=== PATIENT | female | born 1970 | race Caucasian/White ===

== ENCOUNTER 2018-05-21 18:56 | Emergency (ER) | payer BC, OTHER, SELFPAY ==
[2018-05-21] MEDS ORDERED: HYDROCODONE/APAP 5/325 MG TAB ONE (20:18)
[2018-05-21] MEDS ORDERED: DIAZEPAM 2 MG TABLET ONE (20:18)
[2018-05-21 20:20] LABS: Urine Blood 1+ (NEG); Urine Glucose NEGATIVE (NEG); Urine Protein NEGATIVE (NEG); Urine Specific Gravity >1.030 (1.005-1.030); Urine pH 5.5 (5.0-7.0)
--- NOTE | 2018-05-21 20:24 | EDPHYS ---
Physician Documentation [facility] Name: Yvette Kidd Age: 47 yrs Sex: Female : 1970 Arrival Date: 05/21/2018 Time: 19:04 Bed 14 Private MD: ED Physician Rico Barba HPI: 05/21 20:26 This 47 yrs old Female presents to ER via Ambulatory with complaints of Back snw Pain. 20:26 The patient presents with pain that is acute, with no known mechanism of injury. The snw symptoms are located in the low back. Onset: The symptoms/episode began/occurred suddenly, 3 day(s) ago. Location: lumbar area. Associated signs and symptoms: Pertinent positives: nausea, diarrhea. Modifying factors: The patient symptoms are alleviated by ambulation, the patient symptoms are aggravated by bending, lifting, sitting. Severity of symptoms: At their worst the symptoms were moderate, severe. The patient has not experienced similar symptoms in the past. It is unknown whether or not the patient has recently seen a physician. Historical: - Allergies: 19:34 Erythromycin; tl2 - Home Meds: 19:34 Vyvanse oral oral [Active]; tl2 - PMHx: 19:34 ADD/ADHD; mitral valve prolapse; tl2 - PSHx: 19:34 ; Cholecystectomy; tl2 - Immunization history:: Adult Immunizations up to date. - Social history:: Smoking status: Patient/guardian denies using tobacco. - Ebola Screening: : No symptoms or risks identified at this time. ROS: 20:25 Constitutional: Negative for fever, chills, and weight loss, Eyes: Negative for injury, snw pain, redness, and discharge, ENT: Negative for injury, pain, and discharge, Neck: Negative for injury, pain, and swelling, Cardiovascular: Negative for chest pain, palpitations, and edema, Respiratory: Negative for shortness of breath, cough, wheezing, and pleuritic chest pain, Abdomen/GI: Negative for abdominal pain, nausea, vomiting, diarrhea, and constipation, : Negative for injury, bleeding, discharge, and swelling, MS/Extremity: Negative for injury and deformity, Skin: Negative for injury, rash, and discoloration, Neuro: Negative for headache, weakness, numbness, tingling, and seizure. 20:25 Back: Positive for decreased range of motion, pain at rest, pain with movement, radiated pain, of the lumbar area and left low back. Exam: 20:24 Constitutional: This is a well developed, well nourished patient who is awake, alert, snw and in no acute distress. Head/Face: Normocephalic, atraumatic. Eyes: Pupils equal round and reactive to light, extra-ocular motions intact. Lids and lashes normal. Conjunctiva and sclera are non-icteric and not injected. Cornea within normal limits. Periorbital areas with no swelling, redness, or edema. ENT: Nares patent. No nasal discharge, no septal abnormalities noted. Tympanic membranes are normal and external auditory canals are clear. Oropharynx with no redness, swelling, or masses, exudates, or evidence of obstruction, uvula midline. Mucous membranes moist. Neck: Trachea midline, no thyromegaly or masses palpated, and no cervical lymphadenopathy. Supple, full range of motion without nuchal rigidity, or vertebral point tenderness. No Meningismus. Chest/axilla: Normal chest wall appearance and motion. Nontender with no deformity. No lesions are appreciated. Cardiovascular: Regular rate and rhythm with a normal S1 and S2. No gallops, murmurs, or rubs. Normal PMI, no JVD. No pulse deficits. Respiratory: Lungs have equal breath sounds bilaterally, clear to auscultation and percussion. No rales, rhonchi or wheezes noted. No increased work of breathing, no retractions or nasal flaring. Abdomen/GI: Soft, non-tender, with normal bowel sounds. No distension or tympany. No guarding or rebound. No evidence of tenderness throughout. Skin: Warm, dry with normal turgor. Normal color with no rashes, no lesions, and no evidence of cellulitis. MS/ Extremity: Pulses equal, no cyanosis. Neurovascular intact. Full, normal range of motion. Neuro: Awake and alert, GCS 15, oriented to person, place, time, and situation. Cranial nerves II-XII grossly intact. Motor strength 5/5 in all extremities. Sensory grossly intact. Cerebellar exam normal. Normal gait. Psych: Awake, alert, with orientation to person, place and time. Behavior, mood, and affect are within normal limits. 20:24 Back: pain, that is moderate, ROM is painful, with flexion, CVA tenderness, is absent, vertebral tenderness, is not appreciated, muscle spasm, is appreciated in the left low back. Vital Signs: 19:34 BP 131 / 93; Pulse 81; Resp 20; Temp 97.8; Pulse Ox 100% on R/A; Weight 77.11 kg; tl2 Height 5 ft. 5 in. (165.10 cm); Pain 10/10; 21:05 BP 111 / 71; Pulse 74; Resp 18; Pulse Ox 100% on R/A; Pain 5/10; tl2 19:34 Body Mass Index 28.29 (77.11 kg, 165.10 cm) tl2 MDM: 19:27 Patient medically screened. snw 20:25 Data reviewed: vital signs, nurses notes. Data interpreted: Pulse oximetry: on room air snw is 100 %. Interpretation: normal. Counseling: I had a detailed discussion with the patient and/or guardian regarding: the historical points, exam findings, and any diagnostic results supporting the discharge/admit diagnosis, the presence of at least one elevated blood pressure reading (>120/80) during this emergency department visit, lab results, the need for outpatient follow up, to return to the emergency department if symptoms worsen or persist or if there are any questions or concerns that arise at home. Special discussion: I have referred the patient to see his PCP for further evaluation of high blood pressure. Based on the history and exam findings, there is no indication for further emergent testing or inpatient evaluation. I discussed with the patient/guardian the need to see the primary care provider for further evaluation of the symptoms. 05/21 19:50 Order name: Urine Dipstick--Ancillary (enter results); Complete Time: 20:22 mt 05/21 19:50 Order name: Urine --Ancillary (enter results); Complete Time: 20:22 mt 05/21 19:28 Order name: Urine Dipstick-Ancillary (obtain specimen); Complete Time: 19:50 snw Administered Medications: 20:15 Drug: Valium 2 mg Route: PO; tl2 21:07 Follow up: Response: No adverse reaction; Pain is decreased tl2 20:16 Drug: [place] 5 mg-325 mg 1 tabs Route: PO; tl2 21:07 Follow up: Response: No adverse reaction; Pain is decreased tl2 Disposition: 05/22 01:01 Co-signature as Attending Physician, Rico Barba MD. rn Disposition: 05/21/18 20:23 Discharged to Home. Impression: Radiculopathy, lumbar region, Low back pain. - Condition is Stable. - Discharge Instructions: Back Pain, Adult, Hypertension, Lumbosacral Radiculopathy, Musculoskeletal Pain, Back Injury Prevention, [id number], Back Exercises, Jmbz-[id number], Cryotherapy, Rehydration, Adult, Heat Therapy. - Prescriptions for Zofran 4 mg Oral Tablet - take 1 tablet by ORAL route every 12 hours As needed; 20 tablet. Diclofenac Sodium 75 mg Oral Tablet Sustained Release - take 1 tablet by ORAL route 2 times per day; 30 tablet. orphenadrine citrate 100 mg Oral Tablet Sustained Release - take 1 tablet by ORAL route 2 times per day As needed; 20 tablet. - Work release form, Medication Reconciliation Form, Thank You Letter, Antibiotic Education, Prescription Opioid Use form. - Follow up: Private Physician; When: 2 - 3 days; Reason: Recheck today's complaints, Continuance of care, Re-evaluation by your physician. Follow up: Emergency Department; When: As needed; Reason: Worsening of condition. Signatures: Dispatcher [employer] EDMS Lucia Rasheed, PERLITE GRINDER-C PERLITE GRINDER-Csnw Rico Barba MD MD rn Knox, Taylor, RN RN tl2 Corrections: (The following items were deleted from the chart) 05/21 21:10 20:23 05/21/2018 20:23 Discharged to Home. Impression: Radiculopathy, lumbar region; tl2 Low back pain. Condition is Stable. Forms are Medication Reconciliation Form, Thank You Letter, Antibiotic Education, Prescription Opioid Use. Follow up: Private Physician; When: 2 - 3 days; Reason: Recheck today's complaints, Continuance of care, Re-evaluation by your physician. Follow up: Emergency Department; When: As needed; Reason: Worsening of condition. snw
--- NOTE | 2018-05-21 20:24 | ER ---
Nurse's Notes [facility] Name: Yvette Kidd Age: 47 yrs Sex: Female : 1970 Arrival Date: 05/21/2018 Time: 19:04 Bed 14 Private MD: Diagnosis: Radiculopathy, lumbar region;Low back pain Presentation: 05/21 19:31 Presenting complaint: Patient states: L lower back pain since Sunday, gotten worse on tl2 Sunday and has continued since then. Pain is worse when sitting or trying to move from sitting to standing. Pain eases if walking. Denies urinary symptoms. Reports nausea. Transition of care: patient was not received from another setting of care. Onset of symptoms was May 15, 2018. Risk Assessment: Do you want to hurt yourself or someone else? Patient reports no desire to harm self or others. Initial Sepsis Screen: Does the patient meet any 2 criteria? No. Patient's initial sepsis screen is negative. Does the patient have a suspected source of infection? No. Patient's initial sepsis screen is negative. Care prior to arrival: None. 19:31 Method Of Arrival: Ambulatory tl2 19:31 Acuity: SANGITA 3 tl2 Triage Assessment: 19:34 General: Appears in no apparent distress. uncomfortable, Behavior is calm, cooperative, tl2 appropriate for age. Pain: Complains of pain in left low back Pain does not radiate. Pain currently is 10 out of 10 on a pain scale. Quality of pain is described as aching, sharp, Aggravated by repositioning. Neuro: Level of Consciousness is awake, alert, obeys commands, Oriented to person, place, time, situation. Cardiovascular: Denies chest pain. Respiratory: Airway is patent Respiratory effort is even, unlabored, Respiratory pattern is regular, symmetrical. GI: Reports nausea. : No signs and/or symptoms were reported regarding the genitourinary system. Derm: Skin is pink, warm \T\ dry. Musculoskeletal: Range of motion: limited in back. Historical: - Allergies: 19:34 Erythromycin; tl2 - Home Meds: 19:34 Vyvanse oral oral [Active]; tl2 - PMHx: 19:34 ADD/ADHD; mitral valve prolapse; tl2 - PSHx: 19:34 ; Cholecystectomy; tl2 - Immunization history:: Adult Immunizations up to date. - Social history:: Smoking status: Patient/guardian denies using tobacco. - Ebola Screening: : No symptoms or risks identified at this time. Screenin:37 Abuse screen: Denies threats or abuse. Nutritional screening: No deficits noted. tl2 Tuberculosis screening: No symptoms or risk factors identified. Fall Risk None identified. Assessment: 19:31 General: Appears. tl2 21:05 Reassessment: Patient appears in no apparent distress at this time. Patient and/or tl2 family updated on plan of care and expected duration. Pain level reassessed. Patient is alert, oriented x 3, equal unlabored respirations, skin warm/dry/pink. Pt verbalized understanding of discharge instructions, need for follow up and prescription usage Patient states feeling better. Vital Signs: 19:34 BP 131 / 93; Pulse 81; Resp 20; Temp 97.8; Pulse Ox 100% on R/A; Weight 77.11 kg; tl2 Height 5 ft. 5 in. (165.10 cm); Pain 10/10; 21:05 BP 111 / 71; Pulse 74; Resp 18; Pulse Ox 100% on R/A; Pain 5/10; tl2 19:34 Body Mass Index 28.29 (77.11 kg, 165.10 cm) tl2 ED Course: 19:04 Patient arrived in ED. as 19:26 Lucia Rasheed FNP-C [facility]. snw 19:27 Rico Barba MD is Attending Physician. snw 19:31 Domi Ann RN is Primary Nurse. tl2 19:33 Triage completed. tl2 19:34 Arm band placed on right wrist. tl2 19:37 Patient has correct armband on for positive identification. Placed in gown. Bed in low tl2 position. Call light in reach. Side rails up X 1. Adult w/ patient. 21:05 No provider procedures requiring assistance completed. Patient did not have IV access tl2 during this emergency room visit. Administered Medications: 20:15 Drug: Valium 2 mg Route: PO; tl2 21:07 Follow up: Response: No adverse reaction; Pain is decreased tl2 20:16 Drug: [place] 5 mg-325 mg 1 tabs Route: PO; tl2 21:07 Follow up: Response: No adverse reaction; Pain is decreased tl2 Outcome: 20:23 Discharge ordered by MD. mantilla 21:05 Discharged to home ambulatory, with family. tl2 21:05 Condition: stable 21:05 Discharge instructions given to patient, Instructed on discharge instructions, follow up and referral plans. medication usage, Demonstrated understanding of instructions, follow-up care, medications, Prescriptions given X 3. 21:10 Patient left the ED. tl2 Signatures: Lucia Rasheed, HOSPICE TEAM LEAD-C HOSPICE TEAM LEAD-Kena Coley Taylor, RN RN tl2
[2018-05-21 21:15] VITALS: TEMP 97.8; O2SAT 100
[2018-05-21 21:16] VITALS: BP 111/71
== END 2018-05-21 21:10 | disposition home or self-care (01) ==
LOC: ER 18:56
DX: M54.16 Radiculopathy, lumbar region (principal); F90.9 Attention-deficit hyperactivity disorder, unspecified type; Z88.3 Allergy status to other anti-infective agents
CPT/HCPCS: 81003; 81025; 99283

== ENCOUNTER → 2023-09-06 | Emergency (ER) | payer OTHER ==
[~2023-09-06] MED LIST: BENZONATATE 100 MG CAP PO ONE; FAMOTIDINE 20 MG/2 ML VIAL IV ONE; HYDROCODONE/APAP 10/325 TAB ONE; MORPHINE 4 MG/ML SYR ONE; NA CHLORIDE 0.9% 1,000 ML ONE; ONDANSETRON 4 MG/2 ML VIAL ONE; PROMETHAZINE INJ 25 MG/ML AMP ONE
[2023-09-06 18:41] LABS: Specific Gravity 1.022 (1.005-1.030); Urine Bacteria None Seen /HPF (<20); Urine Bilirubin NEGATIVE (Negative); Urine Blood Negative (Negative); Urine Clarity Turbid (Clear); Urine Color Yellow (Yellow); Urine Glucose NEGATIVE (Negative); Urine Mucus Slight /HPF (None Seen); Urine Protein NEGATIVE (Negative); Urine RBC None Seen /HPF (None Seen); Urine Urobilinogen Normal (Normal); Urine pH 5.5 (5.0-7.0)
[2023-09-06 18:55] LABS: Absolute Lymphocytes (CBC) 2.9 K/uL (0.7-4.9); Hematocrit 37.9 % (36.0-45.0); Lymphocytes % 36.4 % (15.3-44.8); MCV 89.1 fL (80-100); MPV 8.1 fL (7.6-11.3); Platelets 301 thou/uL (152-406); RBC Red Blood Cell Count 4.25 M/uL (3.86-4.86)
[2023-09-06 19:24] LABS: Albumin 3.3 g/dL (3.4-5.0); Bilirubin Total 0.7 mg/dL (0.2-1.0); Potassium 3.5 mEq/L (3.5-5.1); Protein, Total 7.3 g/dL (6.4-8.2)
--- NOTE | 2023-09-06 20:56 | RAD REPORT ---
EXAM DESCRIPTION: CT - Abdomen Pelvis W Contrast - 09/06/2023 8:14 pm CLINICAL HISTORY: Abdominal pain COMPARISON: Abdominal ultrasound September 05, 2019 TECHNIQUE: Computed axial tomography of the abdomen pelvis was obtained. 100 cc Isovue-300 was admin istered intravenously. Oral contrast was not requested which limits evaluation of bowel and appendix All CT scans are performed using dose optimization technique as appropriate and may include automated exposure control or mA/KV adjustment according to patient size. FINDINGS: The liver, spleen,, adrenal and kidneys appear unremarkable. The pancreas is minimally inhomogeneous which probably is a normal finding for the patient. A mass is not visualized. Pancreatic duct is normal caliber. No stranding within the adjacent fat. The promine nce of the pancreatic body described on the prior ultrasound is not considered significant There is no evidence of diverticulitis. Hysterectomy. No adnexal mass. Cholecystectomy A small umbilical hernia IMPRESSION: No acute abnormality is displayed.
--- NOTE | 2023-09-06 20:57 | RAD REPORT ---
EXAM DESCRIPTION: Golden Bustamante And Leta (2 Views)09/06/2023 6:21 pm CLINICAL HISTORY: Chest pain COMPARISON: September 05, 2023 FINDINGS: The lungs appear clear of acute infiltrate. The heart is normal size IMPRESSION: No acute abnormalities displayed
--- NOTE | 2023-09-06 21:10 | EDPHYS ---
Physician Documentation [facility] Name: Yvette Kidd Age: 53 yrs Sex: Female : 1970 Arrival Date: 09/06/2023 Time: 17:21 Bed 18 Private MD: ED Physician Geraldo Miller HPI: 09/06 17:53 This 53 yrs old Female presents to ER via Ambulatory with complaints of ABD/Side Pain. rn 17:53 The patient presents with abdominal pain in the right upper quadrant. rn 17:53 Onset: The symptoms/episode began/occurred 2 week(s) ago. The symptoms radiate to right rn back. Associated signs and symptoms: Pertinent negatives: blood in stools, fever, shortness of breath, vomiting, vomiting blood. 17:56 The symptoms are described as achy, sharp. Modifying factors: The symptoms are rn alleviated by nothing. 17:56 Severity of pain: At its worst the pain was moderate in the emergency department the rn pain is unchanged. The patient has not experienced similar symptoms in the past. The patient has been recently seen by a physician:. Patient states had flu a month ago and was diagnosed with pleurisy. Had been having right sided chest pain and abdominal pain that was worse with breathing since she had flu. Seen by Dr. Fuentes and blood work obtained as well as chest x-ray and ultrasound. Per patient report ultrasound showed possibly enlarged pancreas. Patient has had cholecystectomy in the past. No fever. No hemoptysis. No history of DVT or PE. No leg swelling. Reports more right chest pain than abdominal pain. No history of pancreatitis. Had her gallbladder removed 10 years ago. Denies alcoholism.. Historical: - Allergies: 17:51 Erythromycin; cm10 - PMHx: 17:51 ADD/ADHD; mitral valve prolapse; Rheumatoid arthritis; cm10 - PSHx: 17:51 Cholecystectomy; Total abdominal hysterectomy; cm10 - Immunization history:: Adult Immunizations up to date. - Social history:: Smoking status: Patient denies any tobacco usage or history of. - Family history:: not pertinent. - Hospitalizations: : No recent hospitalization is reported. ROS: 17:56 Constitutional: Negative for fever, chills, and weight loss, Cardiovascular: Negative rn for palpitations, and edema, Respiratory: Negative for shortness of breath, cough, wheezing Abdomen/GI: Negative for nausea, vomiting, diarrhea, and constipation, MS/Extremity: Negative for injury and deformity, Skin: Negative for injury, rash, and discoloration, Neuro: Negative for headache, numbness, tingling, and seizure, Exam: 17:56 Constitutional: Ambulatory to room without difficulty or assistance. rn 18:36 Constitutional: This is a well developed, well nourished patient who is awake, alert, rn and in no acute distress. Cardiovascular: Regular rate and rhythm. No pulse deficits. Respiratory: No increased work of breathing, no retractions or nasal flaring. Abdomen/GI: Soft, non-tender MS/ Extremity: Pulses equal, no cyanosis. Neuro: Awake and alert, GCS 15 Vital Signs: 17:49 BP 157 / 63; Pulse 97; Resp 18; Temp 97.5; Pulse Ox 99% on R/A; Weight 86.18 kg; Height cm10 5 ft. 4 in. ; Pain 9/10; 19:00 BP 138 / 68; Pulse 80; Resp 18; Temp 97.7(O); Pain 0/10; la4 21:36 BP 108 / 95; Pulse 83; Resp 20; Temp 97.6; Pulse Ox 100% on R/A; Pain 6/10; la4 17:49 Body Mass Index 32.61 (86.18 kg, 162.56 cm) cm10 17:49 Pain Scale: Adult cm10 19:00 Pain Scale: Adult la4 21:36 Pain Scale: Adult la4 [place] Coma Score: 21:36 Eye Response: spontaneous(4). Motor Response: obeys commands(6). Verbal Response: la4 oriented(5). Total: 15. MDM: 17:26 Patient medically screened. rn 20:31 Data reviewed: vital signs, nurses notes, lab test result(s), radiologic studies. ED kdr course: Patient report currently pending on CT of the abdomen. Plan would be to discharge patient if no significant findings were found. Otherwise the patient would be hospitalized to the hospitalist. Patient's PCP, Dr. Fuentes, is out of town. 09/06 17:47 Order name: CBC with Diff; Complete Time: 19:14 rn 09/06 17:47 Order name: CMP; Complete Time: 19:32 rn 09/06 17:47 Order name: Lipase; Complete Time: 19:32 rn 09/06 17:47 Order name: Urinalysis w/ reflexes; Complete Time: 18:59 rn 09/06 17:54 Order name: Troponin High Sensitivity; Complete Time: 19:32 rn 09/06 17:47 Order name: CT Abd/Pelvis - IV Contrast Only; Complete Time: 21:00 rn 09/06 17:56 Order name: XRAY Chest Pa And Lat (2 Views); Complete Time: 21:00 rn 09/06 17:54 Order name: EKG; Complete Time: 17:54 rn 09/06 17:47 Order name: IV Saline Lock; Complete Time: 18:40 rn 09/06 17:47 Order name: Labs collected and sent; Complete Time: 18:40 rn 09/06 17:54 Order name: EKG - Nurse/Tech; Complete Time: 18:40 rn Administered Medications: 18:10 Drug: NS 0.9% IV 1000 ml IV at 1 bolus Per protocol; 1000 mL bolus Route: IV; Rate: 1 rs5 bolus; Site: left antecubital; 18:10 Drug: Famotidine IVP 20 mg IVP once; dilute with 10 mL 0.9% NaCl; give over 2 minutes rs5 Route: IVP; Site: left antecubital; 18:30 Follow up: Response: No adverse reaction rs5 18:10 Drug: Ondansetron IVP 4 mg IVP once; over 2 minutes Route: IVP; Site: left antecubital; rs5 18:30 Follow up: Response: No adverse reaction; Nausea is decreased rs5 18:10 Drug: morphine IVP or IV 4 mg IVP once over 4 mins Route: IVP; Infused Over: 4 mins; rs5 Site: left antecubital; 18:30 Follow up: Response: No adverse reaction; Pain is decreased rs5 19:39 Drug: Promethazine IVP 12.5 mg IVP once Route: IVP; Site: left antecubital; la4 21:36 Follow up: Response: No adverse reaction; Nausea is decreased la4 21:36 Drug: [place] PO 10 mg-325 mg 1 tabs PO once Route: PO; la4 21:36 Drug: Tessalon Perle PO 200 mg PO once Route: PO; la4 Disposition Summary: 09/06/23 21:09 Discharge Ordered Notes: Location: Home kdr Problem: an ongoing problem kdr Symptoms: have improved kdr Condition: Stable kdr Diagnosis - Right lateral anterior inferior costal margin pain secondary to coughing kdr Followup: kdr - With: Private Physician - When: 2 - 3 days - Reason: If symptoms return, Further diagnostic work-up, Recheck today's complaints, Continuance of care, Re-evaluation by your physician Discharge Instructions: - Discharge Summary Sheet kdr - Musculoskeletal Pain kdr - Nonspecific Chest Pain, Adult, [id number] kdr - Cough, Adult, [id number] kdr Forms: - Medication Reconciliation Form kdr - Thank You Letter kdr - Prescription Opioid Use kdr - Patient Portal Instructions kdr - Leadership Thank You Letter kdr Prescriptions: - acetaminophen-codeine 300-30 mg Oral tablet - take 1 tablet ORAL route 2 times per day As needed Take in the evening for pain kdr relief with sleep; 12 tablet; Refills: 0, Product Selection Permitted - Tessalon Perles 100 mg Oral Capsule - take 1 capsule ORAL route every 8 hours As needed; 15 capsule; Refills: 0, kdr Product Selection Permitted Signatures: Dispatcher [employer] Geraldo Jama MD MD kdr Rico Barba MD MD rn Sotelo, Ricky, RN RN rs5 Laura Valle, RN RN cm10 Venita Dill, RN RN la4
--- NOTE | 2023-09-06 21:10 | ER ---
Nurse's Notes [facility] Name: Yvette Kidd Age: 53 yrs Sex: Female : 1970 Arrival Date: 09/06/2023 Time: 17:21 Bed 18 Private MD: Diagnosis: Right lateral anterior inferior costal margin pain secondary to coughing Presentation: 09/06 17:49 Chief complaint: Patient states: RUQ abdominal pain that radiates to back. Pt states cm10 that she was diagnosed with pneumonia last month. Pt states having a chest x-ray and US yesterday and was told "my pancreas is enlarged." Pt reports that the pain is worse with cough. Coronavirus screen: Vaccine status: Patient reports being unvaccinated. Ebola Screen: Patient denies travel to an Ebola-affected area in the 21 days before illness onset. No symptoms or risks identified at this time. Initial Sepsis Screen: Does the patient meet any 2 criteria? No. Patient's initial sepsis screen is negative. Does the patient have a suspected source of infection? No. Patient's initial sepsis screen is negative. Risk Assessment: Do you want to hurt yourself or someone else? Patient reports no desire to harm self or others. Onset of symptoms was September 06, 2023. 17:49 Method Of Arrival: Ambulatory cm10 17:49 Acuity: SANGITA 3 cm10 Historical: - Allergies: 17:51 Erythromycin; cm10 - PMHx: 17:51 ADD/ADHD; mitral valve prolapse; Rheumatoid arthritis; cm10 - PSHx: 17:51 Cholecystectomy; Total abdominal hysterectomy; cm10 - Immunization history:: Adult Immunizations up to date. - Social history:: Smoking status: Patient denies any tobacco usage or history of. - Family history:: not pertinent. - Hospitalizations: : No recent hospitalization is reported. Screenin:40 [facility] ED Fall Risk Assessment (Adult) History of falling in the last 3 months, rs5 including since admission No falls in past 3 months (0 pts) Confusion or Disorientation No (0 pts) Intoxicated or Sedated No (0 pts) Impaired Gait No (0 pts) Mobility Assist Device Used No (0 pt) Altered Elimination No (0 pt) Score/Fall Risk Level 0 - 2 = Low Risk Oriented to surroundings, Maintained a safe environment. Abuse screen: Denies threats or abuse. Nutritional screening: No deficits noted. Tuberculosis screening: No symptoms or risk factors identified. Assessment: 17:40 General: Appears in no apparent distress. uncomfortable, Behavior is calm, cooperative. rs5 Pain: Complains of pain in right side of chest Pain does not radiate. Pain currently is 7 out of 10 on a pain scale. Quality of pain is described as aching, Pain began 2-3 days ago. Is continuous. Neuro: Level of Consciousness is awake, alert, obeys commands, Oriented to person, place, time, situation. Cardiovascular: Heart tones S1 S2 present Patient's skin is warm and dry. Rhythm is regular. Respiratory: Airway is patent Respiratory effort is even, unlabored, Respiratory pattern is regular, symmetrical, Breath sounds are clear bilaterally. GI: Abdomen is round non-distended, Bowel sounds present X 4 quads. Abd is soft and non tender X 4 quads. Reports nausea. : No signs and/or symptoms were reported regarding the genitourinary system. EENT: No signs and/or symptoms were reported regarding the EENT system. Derm: Skin is intact, Skin is pink, warm \\T\\ dry. Musculoskeletal: Range of motion: intact in all extremities. 18:30 Reassessment: Patient and/or family updated on plan of care and expected duration. Pain rs5 level reassessed. Patient is alert, oriented x 3, equal unlabored respirations, skin warm/dry/pink. Patient denies pain at this time. Patient states feeling better. Patient states symptoms have improved. 18:30 Cardiovascular: Rhythm is regular. Respiratory: Respiratory effort is even, unlabored, rs5 Respiratory pattern is regular, symmetrical. Vital Signs: 17:49 BP 157 / 63; Pulse 97; Resp 18; Temp 97.5; Pulse Ox 99% on R/A; Weight 86.18 kg; Height cm10 5 ft. 4 in. ; Pain 9/10; 19:00 BP 138 / 68; Pulse 80; Resp 18; Temp 97.7(O); Pain 0/10; la4 21:36 BP 108 / 95; Pulse 83; Resp 20; Temp 97.6; Pulse Ox 100% on R/A; Pain 6/10; la4 17:49 Body Mass Index 32.61 (86.18 kg, 162.56 cm) cm10 17:49 Pain Scale: Adult cm10 19:00 Pain Scale: Adult la4 21:36 Pain Scale: Adult la4 Vitals: 21:36 Cardiac Rhythm Assessment Regular. la4 [place] Coma Score: 21:36 Eye Response: spontaneous(4). Motor Response: obeys commands(6). Verbal Response: la4 oriented(5). Total: 15. ED Course: 17:24 Patient arrived in ED. mg5 17:26 Rico Barba MD is Attending Physician. rn 17:40 Patient has correct armband on for positive identification. Placed in gown. Bed in low rs5 position. Call light in reach. Side rails up X2. 17:42 John Gonzalez, CARLOS ALBERTO is Primary Nurse. rs5 17:45 Inserted saline lock: 22 gauge in left antecubital area, using aseptic technique. Blood rs5 collected. 17:51 Triage completed. cm10 17:52 Arm band placed on Patient placed in an exam room, on a stretcher, on pulse oximetry. cm10 18:22 XRAY Chest Pa And Lat (2 Views) In Process Unspecified. EDMS 19:29 No provider procedures requiring assistance completed. rs5 20:06 Patient moved back from CT. la4 20:06 Provided Education on: Plan of care. la4 20:16 CT Abd/Pelvis - IV Contrast Only In Process Unspecified. EDMS 20:30 Attending Physician role handed off by Rico Barba MD kdr 20:30 Geraldo Miller MD is Attending Physician. kdr 21:36 IV discontinued, intact, bleeding controlled, No redness/swelling at site. Pressure la4 dressing applied. Administered Medications: 18:10 Drug: NS 0.9% IV 1000 ml IV at 1 bolus Per protocol; 1000 mL bolus Route: IV; Rate: 1 rs5 bolus; Site: left antecubital; 18:10 Drug: Famotidine IVP 20 mg IVP once; dilute with 10 mL 0.9% NaCl; give over 2 minutes rs5 Route: IVP; Site: left antecubital; 18:30 Follow up: Response: No adverse reaction rs5 18:10 Drug: Ondansetron IVP 4 mg IVP once; over 2 minutes Route: IVP; Site: left antecubital; rs5 18:30 Follow up: Response: No adverse reaction; Nausea is decreased rs5 18:10 Drug: morphine IVP or IV 4 mg IVP once over 4 mins Route: IVP; Infused Over: 4 mins; rs5 Site: left antecubital; 18:30 Follow up: Response: No adverse reaction; Pain is decreased rs5 19:39 Drug: Promethazine IVP 12.5 mg IVP once Route: IVP; Site: left antecubital; la4 21:36 Follow up: Response: No adverse reaction; Nausea is decreased la4 21:36 Drug: [place] PO 10 mg-325 mg 1 tabs PO once Route: PO; la4 21:36 Drug: Tessalon Perle PO 200 mg PO once Route: PO; la4 Medication: 19:30 VIS not applicable for this client. rs5 Outcome: 21:09 Discharge ordered by . kdr 21:36 Discharged to home ambulatory, la4 21:36 Discharged to home ambulatory, with significant other, 21:36 Condition: improved 21:36 Discharge instructions given to patient, significant other, Instructed on discharge instructions, follow up and referral plans. medication usage, Demonstrated understanding of instructions, follow-up care, medications, Prescriptions given X 2, 21:51 Patient left the ED. la4 Signatures: Dispatcher [employer] EDMS Geraldo Miller MD MD kdr Nieto, Roman, MD MD rn Sotelo, Ricky, RN RN rs5 Laura Valle RN RN cm10 Nataly Ballesteros mg5 Venita Dill RN RN la4
[2023-09-06 23:34] VITALS: BP 108/95; TEMP 97.6; O2SAT 100
--- NOTE | 2023-09-13 13:56 | EKG ---
Test Date: 2023-09-06 Test Time: 18:27:30 Efficiency Miner: ANMOL MEASUREMENT RESULTS: Intervals: Rate: 84 NM: 154 QRSD: 100 QT: 380 QTc: 449 [place]: P: 57 NM: 154 QRS: 55 T: 36 INTERPRETIVE STATEMENTS: Normal sinus rhythm Normal ECG Compared to ECG 04/06/1999 08:14:00 No significant changes Electronically Signed On 09-13-23 13:31:09 [employer] PORTABLE [employer]ILER by Rob Sánchez
== END ==
LOC: ER 17:21
DX: R07.89 Other chest pain (principal); R05.9 Cough, unspecified; I34.1 Nonrheumatic mitral (valve) prolapse; M06.9 Rheumatoid arthritis, unspecified; Z88.8 Allergy status to other drugs, medicaments and biological substances
CPT/HCPCS: 93005; 85025; 81001; 36415; 84484; 83690; 80053; 74177; 71046; 96375; 96374; 99285; Q9967; J2550; J2405; J7030

== ENCOUNTER 2024-01-16 12:32 | Emergency (ER) | payer OTHER ==
[2024-01-16] MEDS ORDERED: ONDANSETRON 4 MG/2 ML VIAL ONE (13:22)
[2024-01-16] MEDS ORDERED: KETOROLAC 30 MG/ML INJ ONE (13:22)
[2024-01-16] MEDS ORDERED: FAMOTIDINE 20 MG/2 ML VIAL IV ONE (13:22)
[2024-01-16] MEDS ORDERED: NA CHLORIDE 0.9% 1,000 ML ONE (13:22)
[2024-01-16 13:45] LABS: Absolute Eosinophils 0.1 K/uL (0-0.5); Absolute Lymphocytes (CBC) 1.3 K/uL (0.7-4.9); Absolute Monocytes 0.5 K/uL (0.1-1.3); Basophils % 0.1 % (0-1.3); Eosinophils % 1.3 % (0-4.4); Hematocrit 42.2 % (36.0-45.0); Hemoglobin 14.1 g/dL (12.0-15.0); Lymphocytes % 18.9 % (15.3-44.8); MCH 30.2 pg (27.0-35.0); MCHC 33.5 g/dL (32.0-36.0); MCV 90.1 fL (80-100); MPV 8.8 fL (7.6-11.3); Monocytes % 6.8 % (3.3-12.3); Neutrophils % 72.9 % (41.7-73.7); Platelets 338 thou/uL (152-406); RBC Red Blood Cell Count 4.68 M/uL (3.86-4.86); Red Cell Distribution Width 13.4 % (12.1-15.2)
[2024-01-16 14:02] LABS: ALT/SGPT 20 U/L (13-56); AST/SGOT 16 U/L (15-37); Albumin 3.4 g/dL (3.4-5.0); Albumin/Globulin Ratio 0.8 (1.1-1.8); Alkaline Phosphatase 64 U/L (45-117); Anion Gap 10.5 mEq/L (5.0-15.0); BUN Blood Urea Nitrogen 8 mg/dL (7-18); Bicarbonate 26 mEq/L (21-32); Bilirubin Total 0.9 mg/dL (0.2-1.0); Globulin 4.1 g/dL (2.3-3.5); Glomerular Filtration Rate 96 ml/min (=/>90); Glucose Level 88 mg/dL (74-106); Lipase 44 U/L (13-75); Potassium 3.5 mEq/L (3.5-5.1); Protein, Total 7.5 g/dL (6.4-8.2); Sodium Level 134 mEq/L (136-145)
[2024-01-16 14:03] LABS: Troponin High Sensitivity < 3.0 pg/mL (<58.9)
--- NOTE | 2024-01-16 14:46 | RAD REPORT ---
EXAM DESCRIPTION: CTAbdomen Pelvis W Contrast - 01/16/2024 2:38 pm CLINICAL HISTORY: Abdominal pain. ABD PAIN COMPARISON: <Comparisons> TECHNIQUE: Biphasic CT imaging of the abdomen and pelvis was performed with 100 ml non-ionic IV cont rast. All CT scans are performed using dose optimization technique as appropriate and may include automated exposure control or mA/KV adjustment according to patient size. FINDINGS: The lung bases are clear. The liver, spleen, pancreas, adrenal glands and kidneys are within normal limits. Cholecystectomy cli ps. No bowel obstruction, free air, free fluid or abscess. Sigmoid diverticulosis coli. The appendix is n ormal. No evidence of significant lymphadenopathy. No suspicious bony findings. IMPRESSION: No acute intra-abdominal or pelvic finding.
--- NOTE | 2024-01-16 14:52 | EDPHYS ---
Physician Documentation [facility] Name: Yvette Kidd Age: 53 yrs Sex: Female : 1970 Arrival Date: 01/16/2024 Time: 12:32 Bed Treatment Private MD: ED Physician Justin Barajas HPI: 01/15 13:06 This 53 yrs old Female presents to ER via Ambulatory with complaints of Abdominal Pain, kb Nausea. 13:06 Pt is a 53 year old female who presents for constant abd pain that started 3 weeks ago. kb States the pain has been diffuse, but worse in epigastric area. Pain worse after eating. Reports constipation for a week, took a laxative today so she was able to have a small hard BM this morning. Reports vomiting for the last 3 nights. Denies fever. States she developed chills when vomiting last night. . 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 Flu vaccine is not up to date. - Infectious Disease History:: Denies. - Social history:: Smoking status: Patient denies any tobacco usage or history of. ROS: 13:06 Constitutional: As per HPI kb Exam: 13:06 Constitutional: This is a well developed, well nourished patient who is awake, alert, kb and in no acute distress. Head/Face: Normocephalic, atraumatic. ENT: Moist Mucous membranes Cardiovascular: Regular rate Respiratory: Respirations even and unlabored. No increased work of breathing. Talking in full sentences Skin: Warm, dry with normal turgor. Normal color. MS/ Extremity: Pulses equal, no cyanosis. Neurovascular intact. Full, normal range of motion. Neuro: Awake and alert, GCS 15, oriented to person, place, time, and situation. Moves all extremities. Normal gait. 13:06 Abdomen/GI: Inspection: abdomen appears normal, Bowel sounds: normal, Palpation: soft, in all quadrants, mild abdominal tenderness, in the right upper quadrant and right lower quadrant, 18:19 ECG was reviewed by the Attending Physician. kb Vital Signs: 12:59 BP 139 / 85; Pulse 95; Resp 18; Temp 97.7(O); Pulse Ox 99% on R/A; Weight 84.37 kg; ap3 Height 5 ft. 4 in. ; Pain 10/10; 12:59 Body Mass Index 31.93 (84.37 kg, 162.56 cm) ap3 12:59 Pain Scale: Adult ap3 MDM: 12:51 Patient medically screened. kb 13:06 Data reviewed: vital signs, nurses notes. kb 14:51 Differential diagnosis: gastritis, gastroesophageal reflux disease, non-specific abd kb pain, pancreatitis, Peptic Ulcer Disease. 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 Response to treatment: the patient's symptoms have markedly improved after treatment. 01/15 13:05 Order name: CBC with Diff; Complete Time: 13:53 kb 01/15 13:05 Order name: CMP; Complete Time: 14:05 kb 01/15 13:05 Order name: Lipase; Complete Time: 14:05 kb 01/15 13:06 Order name: Troponin High Sensitivity; Complete Time: 14:05 kb 05 13:05 Order name: CT Abd/Pelvis - IV Contrast Only; Complete Time: 14:48 kb 01/15 13:06 Order name: IV Saline Lock; Complete Time: 13:27 kb 01/15 13:06 Order name: Labs collected and sent; Complete Time: 13:27 kb 01/15 13:06 Order name: EKG - Nurse/Tech; Complete Time: 13:27 kb EC:19 Rate is 95 beats/min. Rhythm is regular. QRS [place] is Normal. SD interval is normal at kb 162 msec. QRS interval is normal at 88 msec. QT interval is normal at 452 msec. Administered Medications: 13:29 Drug: NS 0.9% IV 1000 ml IV at 1 bolus Per protocol; 1000 mL bolus Route: IV; Rate: 1 iw bolus; Site: left antecubital; 14:20 Follow up: IV Status: Completed infusion iw 13:29 Drug: TORadol - Ketorolac IVP 15 mg IVP once Route: IVP; Site: left antecubital; iw 14:20 Follow up: Response: No adverse reaction; Pain is decreased iw 13:29 Drug: Ondansetron IVP 4 mg IVP once; over 2 minutes Route: IVP; Site: left antecubital; iw 14:00 Follow up: Response: No adverse reaction iw 13:30 Drug: Famotidine IVP 20 mg IVP once; dilute with 10 mL 0.9% NaCl; give over 2 minutes iw Route: IVP; Site: left antecubital; 14:00 Follow up: Response: No adverse reaction iw Disposition: 14:54 I was immediately available on-site in the Emergency Department for consultation in the ms3 care of the patient. Disposition Summary: 01/16/24 14:51 Discharge Ordered Notes: Location: Home kb Condition: Stable kb Diagnosis - Upper abdominal pain, unspecified kb Followup: kb - With: Emergency Department - When: As needed - Reason: Worsening of condition Followup: kb - With: Private Physician - When: 2 - 3 days - Reason: Recheck today's complaints, Continuance of care, Re-evaluation by your physician Discharge Instructions: - Discharge Summary Sheet kb - Gastroesophageal Reflux Disease, Adult kb - Abdominal Pain, Adult, [id number] kb Forms: - Medication Reconciliation Form kb - Antibiotic Education kb - Prescription Opioid Use kb - Patient Portal Instructions kb - Leadership Thank You Letter kb Prescriptions: - Zofran 4 mg Oral tablet - take 1 tablet ORAL route every 6 hours As needed; 12 tablet; Refills: 0, kb Product Selection Permitted - Pepcid 20 mg Oral Tablet - take 1 tablet ORAL route once daily; 20 tablet; Refills: 0, Product Selection kb Permitted - dicyclomine 20 mg Oral tablet - take 1 tablet ORAL route 4 times per day As needed; 20 tablet; Refills: 0, kb Product Selection Permitted Signatures: Dispatcher [employer] Kimmie Covington FNP-C FNP-Marylou Ortiz, RN RN iw Aleyda Carballo RN RN ap3 Justin Barajas DO DO ms3 Corrections: (The following items were deleted from the chart) 13:06 13:06 Abdomen Pelvis W Con+[id number].BRZ ordered. EDMS EDMS
--- NOTE | 2024-01-16 14:52 | ER ---
Nurse's Notes [facility] Name: Yvette Kidd Age: 53 yrs Sex: Female : 1970 Arrival Date: 01/16/2024 Time: 12:32 Bed Treatment Private MD: Diagnosis: Upper abdominal pain, unspecified Presentation: 01/15 12:59 Chief complaint: Patient states: she has been having abdominal pain for approx 3 weeks. ap3 patient also reports vomiting last night. patient states her pain is currently a 10/10 on the pain scale. Coronavirus screen: At this time, the client does not indicate any symptoms associated with coronavirus-19. Ebola Screen: No symptoms or risks identified at this time. Initial Sepsis Screen: Does the patient meet any 2 criteria? HR > 90 bpm. Does the patient have a suspected source of infection? No. Patient's initial sepsis screen is negative. Risk Assessment: Do you want to hurt yourself or someone else? Patient reports no desire to harm self or others. Onset of symptoms was December 26, 2023. 12:59 Method Of Arrival: Ambulatory ap3 12:59 Acuity: SANGITA 3 ap3 Triage Assessment: 13:01 General: Appears uncomfortable, Behavior is cooperative, appropriate for age. Pain: ap3 Complains of pain in abdomen Pain currently is 10 out of 10 on a pain scale. Pain began three weeks ago. Neuro: Level of Consciousness is awake, alert, obeys commands, Oriented to person, place, time, situation. Cardiovascular: Patient's skin is warm and dry. Respiratory: Airway is patent Respiratory effort is even, unlabored, Respiratory pattern is regular, symmetrical. GI: Reports lower abdominal pain, upper abdominal pain, nausea, vomiting. 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 Flu vaccine is not up to date. - Infectious Disease History:: Denies. - Social history:: Smoking status: Patient denies any tobacco usage or history of. Screenin:01 Abuse screen: Denies threats or abuse. Nutritional screening: No deficits noted. ap3 Tuberculosis screening: No symptoms or risk factors identified. 15:13 [facility] ED Fall Risk Assessment (Adult) History of falling in the last 3 months, ap3 including since admission No falls in past 3 months (0 pts) Confusion or Disorientation No (0 pts) Intoxicated or Sedated No (0 pts) Impaired Gait No (0 pts) Mobility Assist Device Used No (0 pt) Altered Elimination No (0 pt) Score/Fall Risk Level 0 - 2 = Low Risk Oriented to surroundings, Maintained a safe environment, Educated pt \T\ family on fall prevention, incl call for assistance when getting out of bed, Assessed \T\ reinforced patient's understanding of fall precautions, Provided non-skid footwear, Hourly rounding (assess needs \T\ fall precautionary measures) done, Used ambulatory aids as needed (educated on \T\ assisted with), Used gait belt as appropriate. Assessment: 13:31 General: Appears uncomfortable, Behavior is cooperative. Pain: Complains of pain in iw right lower quadrant and right upper quadrant and abdomen Pain currently is 10 out of 10 on a pain scale. Neuro: Level of Consciousness is awake, alert, obeys commands, Oriented to person, place, time, situation, Moves all extremities. Full function. Cardiovascular: Patient's skin is warm and dry. Respiratory: Respiratory effort is even, unlabored, Respiratory pattern is regular, symmetrical. Derm: Skin is intact, is healthy with good turgor. 15:13 GI: ap3 Vital Signs: 12:59 BP 139 / 85; Pulse 95; Resp 18; Temp 97.7(O); Pulse Ox 99% on R/A; Weight 84.37 kg; ap3 Height 5 ft. 4 in. ; Pain 10/10; 12:59 Body Mass Index 31.93 (84.37 kg, 162.56 cm) ap3 12:59 Pain Scale: Adult ap3 ED Course: 12:42 Patient arrived in ED. rg4 12:51 Kimmie Werner FNP-C is PHCP. kb 12:51 Justin Barajas DO is Attending Physician. kb 13:00 Triage completed. ap3 13:01 Arm band placed on right wrist. ap3 13:27 Initial lab(s) drawn, by me, sent to lab. EKG done, by ED staff, reviewed by Kimmie TAYLOR. Inserted saline lock: 22 gauge in left antecubital area, using aseptic technique. Blood collected. 13:27 CBC with Diff Sent. [email or web address] 13:27 CMP Sent. [email or web address] 13:27 Lipase Sent. jg11 13:29 Marylou Bill, RN is Primary Nurse. iw 13:31 Patient has correct armband on for positive identification. iw 14:40 CT Abd/Pelvis - IV Contrast Only In Process Unspecified. EDMS 15:12 No provider procedures requiring assistance completed. IV discontinued, intact, ap3 bleeding controlled, No redness/swelling at site. Pressure dressing applied. 15:13 Provided Education on: fall risk and call light education. ap3 Administered Medications: 13:29 Drug: NS 0.9% IV 1000 ml IV at 1 bolus Per protocol; 1000 mL bolus Route: IV; Rate: 1 iw bolus; Site: left antecubital; 14:20 Follow up: IV Status: Completed infusion iw 13:29 Drug: TORadol - Ketorolac IVP 15 mg IVP once Route: IVP; Site: left antecubital; iw 14:20 Follow up: Response: No adverse reaction; Pain is decreased iw 13:29 Drug: Ondansetron IVP 4 mg IVP once; over 2 minutes Route: IVP; Site: left antecubital; iw 14:00 Follow up: Response: No adverse reaction iw 13:30 Drug: Famotidine IVP 20 mg IVP once; dilute with 10 mL 0.9% NaCl; give over 2 minutes iw Route: IVP; Site: left antecubital; 14:00 Follow up: Response: No adverse reaction iw Medication: 15:12 VIS not applicable for this client. ap3 Outcome: 14:51 Discharge ordered by MD. molina 15:13 Discharged to home ambulatory, ap3 15:13 Condition: good 15:13 Discharge instructions given to patient, Instructed on discharge instructions, Demonstrated understanding of instructions, follow-up care, medications, Prescriptions given X 3, 15:13 Patient left the ED. ap3 Signatures: Dispatcher [employer] EDMS Kimmie Werner, CLAUDIA LOPES-Marylou Ortiz, CARLOS ALBERTO RN iw Cassidy Beebe 4 Aleyda Carballo RN RN ap3 Rakan Comer [email or web address]
[2024-01-16 16:07] VITALS: BP 139/85; TEMP 97.7; O2SAT 99
--- NOTE | 2024-01-19 11:52 | EKG ---
Test Date: 2024-01-16 Test Time: 13:19:11 Shipping Helper: ELVIS MEASUREMENT RESULTS: Intervals: Rate: 95 [place]: 162 QRSD: 88 QT: 360 QTc: 452 [place]: P: 62 [place]: 162 QRS: 63 T: 41 INTERPRETIVE STATEMENTS: Normal sinus rhythm Normal ECG Compared to ECG 09/06/2023 18:27:30 No significant changes Electronically Signed On 01-19-24 11:49:26 CDT by Toby Ho
== END 2024-01-16 15:13 | disposition home or self-care (01) ==
LOC: ER 12:32
DX: R10.13 Epigastric pain (principal); R11.0 Nausea
CPT/HCPCS: 96361; 93005; 85025; 36415; 84484; 83690; 80053; 74177; 96375; 96374; 99284; Q9967; J2405; J7030

== ENCOUNTER 2024-03-14 02:56 | Emergency (ER) | payer OTHER ==
[2024-03-14] MEDS ORDERED: MORPHINE 4 MG/ML SYR ONE (03:54)
[2024-03-14] MEDS ORDERED: KETOROLAC 30 MG/ML INJ ONE (03:54)
[2024-03-14] MEDS ORDERED: FAMOTIDINE 20 MG/2 ML VIAL IV ONE (03:55)
[2024-03-14] MEDS ORDERED: NA CHLORIDE 0.9% 2,000 ML ONE (03:55)
[2024-03-14 07:06] LABS: Absolute Eosinophils 0.1 K/uL (0-0.5); Absolute Lymphocytes (CBC) 0.8 K/uL (0.7-4.9); Absolute Monocytes 0.3 K/uL (0.1-1.3); Absolute Neutrophil 4.9 K/uL (1.8-8.0); Basophils % 0.3 % (0-1.3); Eosinophils % 1.1 % (0-4.4); Hematocrit 36.8 % (36.0-45.0); Hemoglobin 12.2 g/dL (12.0-15.0); Lymphocytes % 13.6 % (15.3-44.8); MCHC 33.2 g/dL (32.0-36.0); MCV 93.3 fL (80-100); MPV 8.8 fL (7.6-11.3); Monocytes % 5.1 % (3.3-12.3); Neutrophils % 79.9 % (41.7-73.7); Platelets 276 thou/uL (152-406); RBC Red Blood Cell Count 3.94 M/uL (3.86-4.86); Red Cell Distribution Width 15.3 % (12.1-15.2)
[2024-03-14 07:24] LABS: Albumin 3.1 g/dL (3.4-5.0); Albumin/Globulin Ratio 0.9 (1.1-1.8); Anion Gap 9.7 mEq/L (5.0-15.0); Bilirubin Total 0.9 mg/dL (0.2-1.0); Globulin 3.3 g/dL (2.3-3.5); Potassium 3.7 mEq/L (3.5-5.1); Protein, Total 6.4 g/dL (6.4-8.2)
[2024-03-14 07:52] LABS: Specific Gravity 1.009 (1.005-1.030)
[2024-03-14 07:54] LABS: Specific Gravity 1.009 (1.005-1.030); Sqamous Epithelial <5 /HPF (None Seen); Urine Bacteria <20 /HPF (<20); Urine Bilirubin NEGATIVE (Negative); Urine Blood Negative (Negative); Urine Clarity Clear (Clear); Urine Color Light-Yellow (Yellow); Urine Culture Reflex Order NOT NEEDED; Urine Glucose NEGATIVE (Negative); Urine Ketones 2+ (Negative); Urine Microscopic Reflex YN ORDER UMIC; Urine Mucus Slight /HPF (None Seen); Urine Nitrite NEGATIVE (Negative); Urine Protein NEGATIVE (Negative); Urine RBC <5 /HPF (None Seen); Urine Urobilinogen Normal (Normal); Urine WBC None Seen /HPF (<5); Urine pH 5.5 (5.0-7.0)
[2024-03-14] MEDS ORDERED: DICYCLOMINE HCL 20 MG/2 ML AMP IM ONE (08:14)
--- NOTE | 2024-03-14 08:38 | RAD REPORT ---
EXAM DESCRIPTION: CTAbdomen Pelvis W Contrast - 03/14/2024 8:06 am CLINICAL HISTORY: Abdominal pain. ABD PAIN COMPARISON: Abdomen Pelvis W Contrast dated 01/16/2024; Abdomen Pelvis W Contrast dated 09/06/2023 TECHNIQUE: Venous phase CT imaging of the abdomen and pelvis was performed with 100 ml non-ionic IV contrast. All CT scans are performed using dose optimization technique as appropriate and may include automated exposure control or mA/KV adjustment according to patient size. FINDINGS: The lung bases are clear.Cholecystectomy. The liver, spleen, pancreas, adrenal glands and kidneys are within normal limits. There is a moderate ly thickened appearance to the distal stomach wall. No bowel obstruction, free air, free fluid or abscess. Mild sigmoid diverticulosis coli. The appendix is normal. No evidence of significant lymphadenopathy. No suspicious bony findings. IMPRESSION: Moderately thickened appearance to the distal aspect of the stomach, nonspecific. Follow -up upper endoscopy may be of value if clinically indicated. Mild sigmoid diverticulosis coli without diverticulitis.
--- NOTE | 2024-03-14 09:21 | ER ---
Nurse's Notes [facility] Pat Name: Yvette Kidd Age: 53 yrs Sex: Female : 1970 Arrival Date: 03/14/2024 Time: 02:56 Bed 14 Private MD: Diagnosis: Abdominal pain, unspecified;Nausea with vomiting, unspecified;Diarrhea, unspecified Presentation: 03/14 03:10 Chief complaint: Chief complaint: Patient states: "intense abdominal pain with vomiting vc1 and diarrhea since 10 oclock". 03:12 Coronavirus screen: Client denies travel out of the [place] in the last 14 days. At this vc1 time, the client does not indicate any symptoms associated with coronavirus-19. Ebola Screen: Patient negative for fever greater than or equal to 101.5 degrees Fahrenheit, and additional compatible Ebola Virus Disease symptoms Patient denies exposure to infectious person. Patient denies travel to an Ebola-affected area in the 21 days before illness onset. No symptoms or risks identified at this time. Initial Sepsis Screen: Does the patient meet any 2 criteria? No. Patient's initial sepsis screen is negative. Does the patient have a suspected source of infection? No. Patient's initial sepsis screen is negative. Risk Assessment: Do you want to hurt yourself or someone else? Patient reports no desire to harm self or others. Onset of symptoms was March 14, 2024. 03:12 Method Of Arrival: Ambulatory vc1 03:12 Acuity: SANGITA 3 vc1 Triage Assessment: 03:21 General: Appears in no apparent distress. uncomfortable, Behavior is calm, cooperative, vc1 appropriate for age. Pain: Complains of pain in right upper quadrant and left upper quadrant Pain does not radiate. Pain currently is 10 out of 10 on a pain scale. Quality of pain is described as crampy, Pain began suddenly, 10 pm Is continuous, Noted to be crying, Also complains of nausea. EENT: No deficits noted. No signs and/or symptoms were reported regarding the EENT system. Neuro: Level of Consciousness is awake, alert, obeys commands, Oriented to person, place, time, situation, Appropriate for age. Cardiovascular: No deficits noted. Respiratory: Airway is patent Respiratory effort is even, unlabored, Respiratory pattern is regular, symmetrical, Breath sounds are clear. GI: Abdomen is distended, non-distended, Reports upper abdominal pain, diarrhea, nausea, vomiting. Derm: Skin is intact, is healthy with good turgor, Skin is dry, Skin is normal, Skin temperature is warm. 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 - Infectious Disease History:: Denies. - Social history:: Smoking status: Patient denies any tobacco usage or history of. - Family history:: not pertinent. Screenin:20 Abuse screen: Denies threats or abuse. Nutritional screening: No deficits noted. vc1 Tuberculosis screening: No symptoms or risk factors identified. 03:25 [facility] ED Fall Risk Assessment (Adult) History of falling in the last 3 months, vc1 including since admission No falls in past 3 months (0 pts) Confusion or Disorientation No (0 pts) Intoxicated or Sedated No (0 pts) Impaired Gait No (0 pts) Mobility Assist Device Used No (0 pt) Altered Elimination Yes (1 pt) Score/Fall Risk Level 0 - 2 = Low Risk Oriented to surroundings, Maintained a safe environment, Educated pt \\T\\ family on fall prevention, incl call for assistance when getting out of bed. Assessment: 03:35 GI: Reports lower abdominal pain, upper abdominal pain, diarrhea, nausea, vomiting. [facility] 06:34 Reassessment: Patient appears in no apparent distress at this time. [facility] 07:04 Reassessment: REPORT RECEIVED. 08:32 Reassessment: Patient appears in no apparent distress at this time. Patient and/or db family updated on plan of care and expected duration. Pain level reassessed. Patient is alert, oriented x 3, equal unlabored respirations, skin warm/dry/pink. Patient states symptoms have improved. General: Appears in no apparent distress. comfortable, Behavior is calm, cooperative. Neuro: Level of Consciousness is awake, alert, obeys commands, Oriented to person, place, time, situation. Respiratory: Airway is patent Respiratory effort is even, unlabored, Respiratory pattern is regular, symmetrical. 09:36 Reassessment: Patient appears in no apparent distress at this time. Patient and/or db family updated on plan of care and expected duration. Pain level reassessed. Patient is alert, oriented x 3, equal unlabored respirations, skin warm/dry/pink. Vital Signs: 03:12 BP 123 / 73; Pulse 92; Resp 14; Temp 98.7; Pulse Ox 98% ; Weight 76.2 kg; Height 5 ft. vc1 4 in. ; 04:13 BP 110 / 66; Pulse 86; Resp 14; Pulse Ox 98% ; jm12 05:20 Pulse 82; Resp 16; Pulse Ox 97% ; jm12 06:33 Pain 0/10; jm12 08:12 BP 108 / 76; Pulse 103; Resp 16; Pulse Ox 98% on R/A; db 09:00 BP 108 / 74; Pulse 99; Resp 16; Temp 98.6; Pulse Ox 98% ; db 03:12 Body Mass Index 28.84 (76.20 kg, 162.56 cm) vc1 06:33 Pain Scale: Adult jm12 Kay Coma Score: 06:40 Eye Response: spontaneous(4). Motor Response: obeys commands(6). Verbal Response: sp4 oriented(5). Total: 15. ED Course: 02:58 Patient arrived in ED. jj6 02:58 Raúl Craft MD is Attending Physician. sp4 03:15 Triage completed. vc1 03:20 Arm band placed on right wrist. vc1 03:27 Patient has correct armband on for positive identification. Bed in low position. Call vc1 light in reach. Pulse ox on. NIBP on. 03:27 CBC with Diff Sent. vk 03:27 CMP Sent. vk 03:27 Lipase Sent. vk 03:28 Missed attempt(s): 22 gauge in right antecubital area. vk 03:28 Initial lab(s) drawn, by ga, sent to lab. vk 04:10 Inserted saline lock: 22 gauge in left antecubital area, using aseptic technique. Blood jm12 collected. Flushed with 10 mL NS. 07:04 Tamela Martinez, RN is Primary Nurse. db 07:[address] via wheelchair. db 08:08 CT Abd/Pelvis - IV Contrast Only In Process Unspecified. EDMS 09:00 Attending Physician role handed off by Raúl Craft MD sd2 09:00 Sharyn Vasquez MD is Attending Physician. sd2 09:36 Provided Education on: DISCHARGE. Warm blanket given. Pillow given. db 09:36 No provider procedures requiring assistance completed. IV discontinued, intact, db bleeding controlled, No redness/swelling at site. Administered Medications: 04:11 Drug: NS 0.9% IV 1000 ml IV at 1 bolus Per protocol; 1000 mL bolus Route: IV; Rate: 1 12 bolus; Site: left antecubital; 05:18 Follow up: IV Intake: 1000ml jm12 06:33 Follow up: IV Status: Completed infusion; IV Intake: 1000ml jm12 09:37 Follow up: Response: No adverse reaction; IV Status: Completed infusion; IV Intake: db 1000ml 04:12 Drug: morphine IVP or IV 4 mg IVP once over 4 mins Route: IVP; Infused Over: 4 mins; 12 Site: left antecubital; 06:33 Follow up: Pain 0/10 Adult 12 04:12 Drug: Ketorolac IVP 30 mg IVP once Route: IVP; Site: left antecubital; jm12 09:37 Follow up: Response: No adverse reaction db 04:12 Drug: Famotidine IVP 20 mg IVP once; dilute with 10 mL 0.9% NaCl; give over 2 minutes jm12 Route: IVP; Site: left antecubital; 09:37 Follow up: Response: No adverse reaction db 05:18 Drug: NS 0.9% IV 1000 ml IV at 125 ml/hr continuous Route: IV; Rate: 125 ml/hr; Site: [facility] left antecubital; 09:37 Follow up: IV Status: Completed infusion db 08:19 Drug: Dicyclomine IM 20 mg IM once Route: IM; Site: right deltoid; db 09:37 Follow up: Response: No adverse reaction db Medication: 03:27 VIS not applicable for this client. vc1 Intake: 05:18 IV: 1000ml; Total: 1000ml. jm12 06:33 IV: 1000ml; Total: 2000ml. jm12 09:37 IV: 1000ml; Total: 3000ml. db Outcome: 09:20 Discharge ordered by . sd2 09:36 Discharged to home ambulatory, db 09:36 Condition: stable 09:36 Discharge instructions given to patient, Instructed on discharge instructions, follow up and referral plans. Prescriptions given X 2, 09:39 Patient left the ED. db Signatures: Dispatcher [employer] [id number] Velia Beyer RN RN vc1 Sharyn Vasquez MD MD sd2 Tamela Martinez RN RN db Raúl Craft MD MD sp4 Michelle Phan Jessica RN RN jm12 Corrections: (The following items were deleted from the chart) 03:15 03:10 Chief complaint: vc1 vc1
--- NOTE | 2024-03-14 09:21 | EDPHYS ---
Physician Documentation [facility] Name: Yvette Kidd Age: 53 yrs Sex: Female : 1970 Arrival Date: 03/14/2024 Time: 02:56 Bed 14 Private MD: ED Physician Sharyn Vasquez HPI: 03/14 02:58 This 53 yrs old Other Race Female presents to ER via Unassigned with complaints of sp4 Abdominal Pain. 06:40 53-year-old female with history of ADHD, MVP, rheumatoid arthritis presents with acute sp4 onset nausea vomiting diarrhea and mid abdominal pain starting 10 AM yesterday evening. 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 - Infectious Disease History:: Denies. - Social history:: Smoking status: Patient denies any tobacco usage or history of. - Family history:: not pertinent. ROS: 06:40 Constitutional: Negative for fever, chills, and weight loss, of nausea vomiting sp4 diarrhea and abdominal pain 06:40 All other systems are negative, Exam: 06:40 Constitutional: This is a well developed, well nourished patient who is awake, alert, sp4 and in no acute distress. Head/Face: Normocephalic, atraumatic. Eyes: Pupils equal round and reactive to light, extra-ocular motions intact. Lids and lashes normal. Conjunctiva and sclera are not injected. Cornea within normal limits. Periorbital areas with no swelling, redness, or edema. ENT: Nares patent. No nasal discharge, no septal abnormalities noted. Tympanic membranes are normal and external auditory canals are clear. Oropharynx with no redness, swelling, or masses, exudates, or evidence of obstruction, uvula midline. Mucous membranes moist. Neck: Trachea midline, no thyromegaly or masses palpated, and no cervical lymphadenopathy. Supple, full range of motion without nuchal rigidity, or vertebral point tenderness. Chest/axilla: Normal chest wall appearance and motion. Nontender with no deformity. No lesions are appreciated. Cardiovascular: Regular rate and rhythm with a normal S1 and S2. No gallops, murmurs, or rubs. Normal PMI, no JVD. No pulse deficits. Respiratory: Lungs have equal breath sounds bilaterally, clear to auscultation and percussion. No rales, rhonchi or wheezes noted. No increased work of breathing, no retractions or nasal flaring. Abdomen/GI: Soft, with normal bowel sounds. No distension or tympany. No guarding or rebound. Positive diffuse abdominal tenderness Back: No spinal tenderness. No costovertebral tenderness. Skin: Warm, dry with normal turgor. Normal color with no rashes, no lesions, and no evidence of cellulitis. MS/ Extremity: Pulses equal, no cyanosis. Neurovascular intact. Full, normal range of motion. Neuro: Awake and alert, GCS 15, oriented to person, place, time, and situation. Cranial nerves II-XII grossly intact. Motor strength 5/5 in all extremities. Sensory grossly intact. Psych: Awake, alert, with orientation to person, place and time. Behavior, mood, and affect are within normal limits 08:13 ECG was reviewed by the Attending Physician. EKG at 0 344 normal sinus rhythm rate sp4 84 Vital Signs: 03:12 BP 123 / 73; Pulse 92; Resp 14; Temp 98.7; Pulse Ox 98% ; Weight 76.2 kg; Height 5 ft. vc1 4 in. ; 04:13 BP 110 / 66; Pulse 86; Resp 14; Pulse Ox 98% ; jm12 05:20 Pulse 82; Resp 16; Pulse Ox 97% ; jm12 06:33 Pain 0/10; jm12 08:12 BP 108 / 76; Pulse 103; Resp 16; Pulse Ox 98% on R/A; db 09:00 BP 108 / 74; Pulse 99; Resp 16; Temp 98.6; Pulse Ox 98% ; db 03:12 Body Mass Index 28.84 (76.20 kg, 162.56 cm) vc1 06:33 Pain Scale: Adult 12 Kay Coma Score: 06:40 Eye Response: spontaneous(4). Motor Response: obeys commands(6). Verbal Response: sp4 oriented(5). Total: 15. MDM: 03:00 Patient medically screened. sp4 06:42 Differential diagnosis: Dysmenorrhea, Endometriosis, gastritis. Data reviewed: vital sp4 signs, nurses notes, lab test result(s), radiologic studies, CT scan. 08:09 ED course: stable at this time, feeling better . sp4 08:09 Transition of care: After a detail discussion of the patient's case, care is sp4 transferred to Sharyn Vasquez MD. 09:19 Transition of care: Care assumed from Raúl Craft MD. ED course: Labs and imaging sd2 reviewed. Pt feeling improved and CT negative for significant acute pathology. Advised patient of all results and need for continued supportive care and outpatient follow up. Verbalizes understanding of strict return precautions. . 03/14 03:08 Order name: CBC with Diff; Complete Time: 07:20 sp4 03/14 03:08 Order name: CMP; Complete Time: 08:13 sp4 03/14 03:08 Order name: Lipase; Complete Time: 08:13 sp4 03/14 03:08 Order name: Test, Urine; Complete Time: 08:13 sp4 03/14 03:08 Order name: Urinalysis w/ reflexes; Complete Time: 08:13 sp4 03/14 03:34 Order name: CRP; Complete Time: 08:13 sp4 03/14 03:34 Order name: CT Abd/Pelvis - IV Contrast Only; Complete Time: 08:58 sp4 03/14 07:15 Order name: EKG Electrocardiogram; Complete Time: 08:14 EDMS 02 03:08 Order name: IV Saline Lock; Complete Time: 04:10 sp4 03/14 03:08 Order name: Labs collected and sent; Complete Time: 03:27 sp4 03/14 06:42 Order name: Misc. Order: recollect labs; Complete Time: 07:04 kmf EC:13 Rate is 84 beats/min. Rhythm is regular, Normal Sinus Rhythm. QRS [place] is Normal. [place] sp4 interval is normal. QRS interval is normal. QT interval is normal. No Q waves. T waves are Normal. No ST changes noted. Clinical impression: No evidence of ischemia. Interpreted by me. Reviewed by me. Administered Medications: 04:11 Drug: NS 0.9% IV 1000 ml IV at 1 bolus Per protocol; 1000 mL bolus Route: IV; Rate: 1 jm12 bolus; Site: left antecubital; 05:18 Follow up: IV Intake: 1000ml [facility] 06:33 Follow up: IV Status: Completed infusion; IV Intake: 1000ml [facility] 09:37 Follow up: Response: No adverse reaction; IV Status: Completed infusion; IV Intake: db 1000ml 04:12 Drug: morphine IVP or IV 4 mg IVP once over 4 mins Route: IVP; Infused Over: 4 mins; [facility] Site: left antecubital; 06:33 Follow up: Pain 0/10 Adult [facility] 04:12 Drug: Ketorolac IVP 30 mg IVP once Route: IVP; Site: left antecubital; [facility] 09:37 Follow up: Response: No adverse reaction db 04:12 Drug: Famotidine IVP 20 mg IVP once; dilute with 10 mL 0.9% NaCl; give over 2 minutes [facility] Route: IVP; Site: left antecubital; 09:37 Follow up: Response: No adverse reaction db 05:18 Drug: NS 0.9% IV 1000 ml IV at 125 ml/hr continuous Route: IV; Rate: 125 ml/hr; Site: [facility] left antecubital; 09:37 Follow up: IV Status: Completed infusion db 08:19 Drug: Dicyclomine IM 20 mg IM once Route: IM; Site: right deltoid; db 09:37 Follow up: Response: No adverse reaction db Disposition Summary: 03/14/24 09:20 Discharge Ordered Notes: Location: Home sd2 Problem: new sd2 Symptoms: have improved sd2 Condition: Stable sd2 Diagnosis - Abdominal pain, unspecified sd2 - Nausea with vomiting, unspecified sd2 - Diarrhea, unspecified sd2 Followup: sd2 - With: Private Physician - When: 2 - 3 days - Reason: Recheck today's complaints, Continuance of care, Re-evaluation by your physician Discharge Instructions: - Discharge Summary Sheet sd2 - Abdominal Pain, Adult sd2 - Food Choices to Help Relieve Diarrhea, Adult sd2 - Diarrhea, Adult sd2 - Nausea and Vomiting, Adult sd2 Forms: - Medication Reconciliation Form sd2 - Antibiotic Education sd2 - Prescription Opioid Use sd2 - Patient Portal Instructions sd2 - Leadership Thank You Letter sd2 Prescriptions: - dicyclomine 20 mg Oral tablet - take 1 tablet ORAL route every 6-8 hours As needed Take as needed for abdominal sd2 cramping; 15 tablet; Refills: 0, Product Selection Permitted - ondansetron 8 mg Oral Tablet,disintegrating - take 1 tablet ORAL route every 8 hours As needed; 10 tablet; Refills: 0, sd2 Product Selection Permitted Signatures: Dispatcher [employer] Velia Wilson RN RN vc1 Sharyn Vasquez MD MD sd2 Tamela Martinez RN RN db Raúl Craft MD MD sp4 Elba Ruiz Izzy Villavicencio RN RN jm12
[2024-03-14 10:59] VITALS: O2SAT 98
[2024-03-14 11:00] VITALS: BP 108/74; TEMP 98.6
--- NOTE | 2024-03-14 13:29 | EKG ---
Test Date: 2024-03-14 Test Time: 03:44:31 Airline Reservation Agent: JUDD MEASUREMENT RESULTS: Intervals: Rate: 84 AL: 172 QRSD: 98 QT: 400 QTc: 472 [place]: P: 56 AL: 172 QRS: 58 T: 63 INTERPRETIVE STATEMENTS: Normal sinus rhythm Septal infarct, age undetermined Abnormal ECG Compared to ECG 01/16/2024 13:19:11 Myocardial infarct finding now present Electronically Signed On 03-14-24 13:28:42 CDT by Rob Sánchez
== END 2024-03-14 09:39 | disposition home or self-care (01) ==
LOC: ER 02:56
DX: R10.9 Unspecified abdominal pain (principal); R11.2 Nausea with vomiting, unspecified; R19.7 Diarrhea, unspecified
CPT/HCPCS: 96361; 93005; 85025; 81001; 36415; 81025; 83690; 80053; 86140; 74177; 96375; 96372; 96374; 99285; Q9967; J0500; J7030

== ENCOUNTER 2024-03-25 18:45 | Emergency (ER) | payer OTHER ==
[2024-03-25] MEDS ORDERED: FAMOTIDINE 20 MG/2 ML VIAL IV ONE (19:02)
[2024-03-25] MEDS ORDERED: ONDANSETRON 4 MG/2 ML VIAL ONE (19:02)
[2024-03-25] MEDS ORDERED: MORPHINE 4 MG/ML SYR ONE (19:02)
[2024-03-25] MEDS ORDERED: NA CHLORIDE 0.9% 1,000 ML ONE (19:02)
[2024-03-25 19:15] LABS: Absolute Eosinophils 0.1 K/uL (0-0.5); Absolute Lymphocytes (CBC) 1.9 K/uL (0.7-4.9); Absolute Monocytes 0.3 K/uL (0.1-1.3); Absolute Neutrophil 6.5 K/uL (1.8-8.0); Basophils % 0.5 % (0-1.3); Eosinophils % 0.7 % (0-4.4); Hemoglobin 14.3 g/dL (12.0-15.0); Lymphocytes % 21.3 % (15.3-44.8); MCH 31.4 pg (27.0-35.0); MCV 92.6 fL (80-100); MPV 8.2 fL (7.6-11.3); Monocytes % 3.7 % (3.3-12.3); Neutrophils % 73.8 % (41.7-73.7); Nucleated Red Blood Cells % 0.1 % (0-0); Platelets 358 thou/uL (152-406); RBC Red Blood Cell Count 4.54 M/uL (3.86-4.86); Red Cell Distribution Width 15.5 % (12.1-15.2)
[2024-03-25 19:26] LABS: Albumin 3.9 g/dL (3.4-5.0); Anion Gap 9.9 mEq/L (5.0-15.0); Bilirubin Total 0.9 mg/dL (0.2-1.0); Globulin 4.1 g/dL (2.3-3.5); Magnesium 1.9 mg/dL (1.6-2.4); Potassium 3.9 mEq/L (3.5-5.1)
--- NOTE | 2024-03-25 20:47 | RAD REPORT ---
EXAM DESCRIPTION: CT - Abdomen Pelvis W Contrast - 03/25/2024 8:21 pm CLINICAL HISTORY: ABD PAIN COMPARISON: Abdomen Pelvis W Contrast dated 03/14/2024; Abdomen Pelvis W Contrast dated 01/16/2024; Abdomen Pelvis W Contrast dated 09/06/2023 TECHNIQUE: Thin cut axial CT imaging of the abdomen and pelvis was performed following intravenous a dministration of iodinated contrast. Multiplanar reformats were generated and reviewed. All CT scans are performed using dose optimization technique as appropriate and may include automated exposure control or mA/KV adjustment according to patient size. FINDINGS: No suspicious findings in the lung bases. The liver shows a small triangular focus of hypoattenuation near the falciform fissure, suggesting fo gaetano fatty infiltration. Adrenal glands, spleen, and pancreas show no suspicious findings. Gallbladder was surgically removed. Symmetric renal function is seen with no hydronephrosis or suspicious renal mass. Mildly prominent small-bowel loops with fluid opacification of the distal small bowel and proximal la rge bowel. No bowel wall thickening. No free air, free fluid or inflammatory stranding. No hernia, ma ss or bulky lymphadenopathy. The urinary bladder is without significant finding. No suspicious bony findings. IMPRESSION: Mildly prominent small bowel loops, with fluid filling of small bowel and proximal large bowel. Findings may reflect enterocolitis, with or without mild ileus.
[2024-03-25 21:39] LABS: Barbiturates NEGATIVE (NEGATIVE); Benzodiazepines NEGATIVE (NEGATIVE); Cocaine NEGATIVE (NEGATIVE); METHAMPHETAM POSITIVE (NEGATIVE); Methadone NEGATIVE (NEGATIVE); Opiates POSITIVE (NEGATIVE); Phencyclidine NEGATIVE (NEGATIVE); THC Cannibis NEGATIVE (NEGATIVE)
[2024-03-25 21:42] LABS: Sqamous Epithelial <5 /HPF (None Seen); Urine Bacteria None Seen /HPF (<20); Urine Bilirubin NEGATIVE (Negative); Urine Blood Negative (Negative); Urine Clarity Clear (Clear); Urine Color Light-Yellow (Yellow); Urine Culture Reflex Order NOT NEEDED; Urine Glucose NEGATIVE (Negative); Urine Ketones TRACE (Negative); Urine Microscopic Reflex YN ORDER UMIC; Urine Mucus Slight /HPF (None Seen); Urine Nitrite NEGATIVE (Negative); Urine Protein NEGATIVE (Negative); Urine RBC <5 /HPF (None Seen); Urine Urobilinogen Normal (Normal); Urine WBC <5 /HPF (<5)
[2024-03-25 21:48] LABS: Specific Gravity > 1.030 (1.005-1.030)
--- NOTE | 2024-03-25 22:32 | ER ---
Nurse's Notes [facility] Name: Yvette Kidd Age: 53 yrs Sex: Female : 1970 Arrival Date: 03/25/2024 Time: 18:45 Bed 4 Private MD: Diagnosis: Other specified noninfective gastroenteritis and colitis Presentation: 03/25 18:59 Chief complaint: Patient states: Pt c/o abdominal pain and n/v x 1 hour. Coronavirus dd2 screen: At this time, the client does not indicate any symptoms associated with coronavirus-19. Ebola Screen: No symptoms or risks identified at this time. Initial Sepsis Screen: Does the patient meet any 2 criteria? No. Patient's initial sepsis screen is negative. Does the patient have a suspected source of infection? No. Patient's initial sepsis screen is negative. Risk Assessment: Do you want to hurt yourself or someone else? Patient reports no desire to harm self or others. Onset of symptoms was March 25, 2024. 18:59 Method Of Arrival: Ambulatory dd2 18:59 Acuity: SANGITA 3 dd2 Triage Assessment: 19:00 General: Appears uncomfortable, ill, Behavior is cooperative. Pain: Complains of pain dd2 in generalized abdomen. 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 - Infectious Disease History:: Denies. - Social history:: Smoking status: Patient denies any tobacco usage or history of. Screenin:05 [facility] ED Fall Risk Assessment (Adult) History of falling in the last 3 months, mb9 including since admission No falls in past 3 months (0 pts) Confusion or Disorientation No (0 pts) Intoxicated or Sedated No (0 pts) Impaired Gait No (0 pts) Mobility Assist Device Used No (0 pt) Altered Elimination No (0 pt) Score/Fall Risk Level 0 - 2 = Low Risk Oriented to surroundings, Maintained a safe environment, Educated pt \T\ family on fall prevention, incl call for assistance when getting out of bed. Abuse screen: Denies threats or abuse. Nutritional screening: No deficits noted. Tuberculosis screening: No symptoms or risk factors identified. Assessment: 19:04 General: Appears uncomfortable, Behavior is anxious, crying. Pain: Complains of pain in mb9 abdomen Pain does not radiate. Pain currently is 10 out of 10 on a pain scale. Quality of pain is described as burning, aching, throbbing, Pain began suddenly, Is continuous. Neuro: [place] Agitation-Sedation Scale (RASS): 0 - Alert and Calm Level of Consciousness is awake, alert, obeys commands, Oriented to person, place, time, situation, Appropriate for age. Cardiovascular: Patient's skin is warm and dry. Respiratory: Airway is patent Respiratory effort is even, unlabored, Respiratory pattern is regular, symmetrical, Breath sounds are clear bilaterally. GI: Pt is actively vomiting bile, Bowel sounds present X 4 quads. Abd is soft Abdomen is tender to palpation in epigastric area Reports nausea, vomiting. : No signs and/or symptoms were reported regarding the genitourinary system. EENT: No signs and/or symptoms were reported regarding the EENT system. Derm: Skin is pink, warm \T\ dry. Musculoskeletal: Range of motion: intact in all extremities. 21:03 Reassessment: Patient appears in no apparent distress at this time. Patient and/or iw family updated on plan of care and expected duration. Pain level reassessed. pt up to bathroom via wheelchair Patient states feeling better. Patient states symptoms have improved. 22:05 Reassessment: Patient appears in no apparent distress at this time. pt given apple iw juice, drank approx 2 oz ,no vomiting or pain. 22:44 Reassessment: Patient appears in no apparent distress at this time. Patient states al5 feeling better. Patient states symptoms have improved. Vital Signs: 18:59 BP 122 / 90; Pulse 115; Resp 16; Temp 97.6; Pulse Ox 97% ; Weight 76.2 kg; Height 5 ft. dd2 4 in. ; 20:30 BP 79 / 67; Pulse 85; Resp 16; Pulse Ox 98% on R/A; al5 21:00 BP 112 / 68; Pulse 88; Resp 16; Pulse Ox 98% on R/A; Pain /10; iw 21:30 BP 93 / 58; Pulse 75; Resp 16; Pulse Ox 98% on R/A; al5 22:00 BP 93 / 54; Pulse 79; Resp 16; Pulse Ox 98% on R/A; al5 22:10 BP 93 / 54; Pulse 77; Resp 16; Pulse Ox 97% on R/A; iw 22:30 BP 103 / 72; Pulse 86; Resp 16; Pulse Ox 100% on R/A; al5 18:59 Body Mass Index 28.84 (76.20 kg, 162.56 cm) dd2 21:00 Pain Scale: Adult iw ED Course: 18:48 Patient arrived in ED. ra3 18:49 Pretty Mg PA-C is PHCP. sb4 18:49 Justin Barajas DO is Attending Physician. sb4 19:00 Triage completed. dd2 19:00 Arm band placed on left wrist. Patient placed in an exam room, on a stretcher, on pulse dd2 oximetry, Patient notified of wait time. 19:04 Dominga Magallon, CARLOS ALBERTO is Primary Nurse. mb9 19:04 Initial lab(s) drawn, by me, sent to lab. Inserted saline lock: 20 gauge in right mb9 antecubital area, using aseptic technique. Blood collected. Flushed with 10 mL NS. 19:05 Placed in gown. Bed in low position. Call light in reach. Side rails up X 1. Provided mb9 Education on: press call light if needing anything. Client placed on continuous cardiac and pulse oximetry monitoring. NIBP monitoring applied. Door closed. Noise minimized. Warm blanket given. Pillow given. 19:06 No provider procedures requiring assistance completed. mb9 19:34 Patient requests pain medication. mb9 20:22 CT Abd/Pelvis - IV Contrast Only In Process Unspecified. EDMS 21:03 Primary Nurse role handed off by Dominga Magallon, CARLOS ALBERTO iw 21:03 Marylou Bill, CARLOS ALBERTO is Primary Nurse. iw 22:51 IV discontinued, intact, bleeding controlled, No redness/swelling at site. Pressure al5 dressing applied. Administered Medications: 19:09 Drug: NS 0.9% IV 1000 ml IV at 1 bolus Per protocol; 1000 mL bolus Route: IV; Rate: 1 al5 bolus; Site: left antecubital; 22:52 Follow up: Response: No adverse reaction; IV Status: Completed infusion; IV Intake: al5 1000ml 19:09 Drug: Famotidine IVP 20 mg IVP once; dilute with 10 mL 0.9% NaCl; give over 2 minutes al5 Route: IVP; Site: left antecubital; 22:52 Follow up: Response: No adverse reaction; Pain is decreased al5 19:09 Drug: Ondansetron IVP 4 mg IVP once; over 2 minutes Route: IVP; Site: left antecubital; al5 22:52 Follow up: Response: No adverse reaction; Nausea unchanged al5 19:09 Drug: morphine IVP or IV 4 mg IVP once over 4 mins Route: IVP; Infused Over: 4 mins; al5 Site: left antecubital; 22:52 Follow up: Response: No adverse reaction; Pain is decreased al5 20:15 Drug: Droperidol IVP 1.25 mg IVP once Route: IVP; Site: left antecubital; al5 21:56 Follow up: Response: No adverse reaction; Nausea is decreased; Vomiting decreased cm10 Medication: 19:06 VIS not applicable for this client. mb9 Intake: 22:52 IV: 1000ml; Total: 1000ml. al5 Outcome: 22:32 Discharge ordered by MD. sb4 22:51 Discharged to home ambulatory, al5 22:51 Condition: good 22:51 Discharge instructions given to patient, Instructed on discharge instructions, follow up and referral plans. medication usage, Demonstrated understanding of instructions, follow-up care, medications, Prescriptions given X 1, 22:51 Patient left the ED. al5 Signatures: Dispatcher [employer] EDMarylou Colunga RN RN iw Brown, Sophia, PA-C PABenito hui4 Dominga Magallon RN RN mb9 Laura Valle RN RN cm10 Ginger Romeo ra3 Aleyda Alejandre RN RN al5 JANE SOLORIO RN RN dd2
--- NOTE | 2024-03-25 22:32 | EDPHYS ---
Physician Documentation [facility] Name: Yvette Kidd Age: 53 yrs Sex: Female : 1970 Arrival Date: 03/25/2024 Time: 18:45 Bed 4 Private MD: ED Physician Justin Barajas HPI: 03/25 18:57 This 53 yrs old Female presents to ER via Unassigned with complaints of abdominal pain, sb4 nausea, vomiting. 18:58 The patient presents with abdominal pain in the epigastric area. Onset: The sb4 symptoms/episode began/occurred just prior to arrival. The symptoms radiate to abdomen. Associated signs and symptoms: Pertinent positives: nausea and vomiting. The patient has experienced a previous episode, approximately 3 weeks ago. 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 - Infectious Disease History:: Denies. - Social history:: Smoking status: Patient denies any tobacco usage or history of. ROS: 18:58 Constitutional: Negative for fever, chills, and weight loss, sb4 18:58 Abdomen/GI: Positive for abdominal pain, nausea and vomiting, 18:58 All other systems are negative, Exam: 18:58 Head/Face: Normocephalic, atraumatic. Eyes: Extra-ocular motions intact. Periorbital sb4 areas with no swelling, redness, or edema. ENT: Mucous membranes moist. Cardiovascular: Regular rate and rhythm with a normal S1 and S2. Respiratory: Lungs have equal breath sounds bilaterally, clear to auscultation and percussion. No rales, rhonchi or wheezes noted. No increased work of breathing, no retractions or nasal flaring. Skin: Warm, dry with normal turgor. Normal color with no rashes, no lesions, and no evidence of cellulitis. 18:58 Constitutional: The patient appears alert, awake, in obvious distress, mildly distressed, obviously ill, in obvious pain, vomiting 18:58 Abdomen/GI: Inspection: abdomen appears normal, Bowel sounds: normal, Palpation: soft, moderate abdominal tenderness, in the epigastric area, Vital Signs: 18:59 BP 122 / 90; Pulse 115; Resp 16; Temp 97.6; Pulse Ox 97% ; Weight 76.2 kg; Height 5 ft. dd2 4 in. ; 20:30 BP 79 / 67; Pulse 85; Resp 16; Pulse Ox 98% on R/A; al5 21:00 BP 112 / 68; Pulse 88; Resp 16; Pulse Ox 98% on R/A; Pain 1/10; iw 21:30 BP 93 / 58; Pulse 75; Resp 16; Pulse Ox 98% on R/A; al5 22:00 BP 93 / 54; Pulse 79; Resp 16; Pulse Ox 98% on R/A; al5 22:10 BP 93 / 54; Pulse 77; Resp 16; Pulse Ox 97% on R/A; iw 22:30 BP 103 / 72; Pulse 86; Resp 16; Pulse Ox 100% on R/A; al5 18:59 Body Mass Index 28.84 (76.20 kg, 162.56 cm) dd2 21:00 Pain Scale: Adult iw MDM: 18:50 Patient medically screened. sb4 22:31 Data reviewed: vital signs, nurses notes, lab test result(s), radiologic studies, and sb4 as a result, I will discharge patient. Counseling: I had a detailed discussion with the patient and/or guardian regarding the historical points, exam findings, and any diagnostic results supporting the discharge/admit diagnosis, lab results, radiology results, to return to the emergency department if symptoms worsen or persist or if there are any questions or concerns that arise at home. 03/25 18:57 Order name: CBC with Diff; Complete Time: 19:16 sb4 03/25 18:57 Order name: CMP; Complete Time: 19:27 sb4 03/25 18:57 Order name: Lipase; Complete Time: 19:27 sb4 03/25 18:57 Order name: Test, Urine; Complete Time: 21:50 sb4 03/25 18:57 Order name: Urinalysis w/ reflexes; Complete Time: 21:50 sb4 03/25 18:57 Order name: UDS; Complete Time: 21:39 sb4 03/25 18:57 Order name: Magnesium; Complete Time: 19:27 sb4 03/25 18:57 Order name: CT Abd/Pelvis - IV Contrast Only; Complete Time: 20:48 sb4 03/25 18:57 Order name: IV Saline Lock; Complete Time: 19:06 sb4 03/25 18:57 Order name: Labs collected and sent; Complete Time: 19:06 sb4 03/25 21:54 Order name: PO challenge; Complete Time: 22:05 sb4 Administered Medications: 19:09 Drug: NS 0.9% IV 1000 ml IV at 1 bolus Per protocol; 1000 mL bolus Route: IV; Rate: 1 al5 bolus; Site: left antecubital; 22:52 Follow up: Response: No adverse reaction; IV Status: Completed infusion; IV Intake: al5 1000ml 19:09 Drug: Famotidine IVP 20 mg IVP once; dilute with 10 mL 0.9% NaCl; give over 2 minutes al5 Route: IVP; Site: left antecubital; 22:52 Follow up: Response: No adverse reaction; Pain is decreased al5 19:09 Drug: Ondansetron IVP 4 mg IVP once; over 2 minutes Route: IVP; Site: left antecubital; al5 22:52 Follow up: Response: No adverse reaction; Nausea unchanged al5 19:09 Drug: morphine IVP or IV 4 mg IVP once over 4 mins Route: IVP; Infused Over: 4 mins; al5 Site: left antecubital; 22:52 Follow up: Response: No adverse reaction; Pain is decreased al5 20:15 Drug: Droperidol IVP 1.25 mg IVP once Route: IVP; Site: left antecubital; al5 21:56 Follow up: Response: No adverse reaction; Nausea is decreased; Vomiting decreased cm10 Disposition: 19:43 I was immediately available on-site in the Emergency Department for consultation in the ms3 care of the patient. Disposition Summary: 03/25/24 22:32 Discharge Ordered Notes: Location: Home sb4 Problem: new sb4 Symptoms: have improved sb4 Condition: Stable sb4 Diagnosis - Other specified noninfective gastroenteritis and colitis sb4 Followup: sb4 - With: Emergency Department - When: As needed - Reason: Trouble breathing, Worsening of condition Discharge Instructions: - Discharge Summary Sheet sb4 - Viral Gastroenteritis, Adult sb4 - Ileus sb4 Forms: - Patient Portal Instructions sb4 - Leadership Thank You Letter sb4 Prescriptions: - Reglan 10 mg Oral tablet - take 1 tablet ORAL route every 6 hours; 20 tablet; Refills: 0, Product sb4 Selection Permitted Signatures: Dispatcher [employer] EDMS Justin Barajas, DO ms3 Pretty Mg PA-C PA-C sb4 Aleyda Alejandre, RN RN al5 JANE SOLORIO RN RN dd2 Laura Valle RN cm10 Corrections: (The following items were deleted from the chart) 18:57 18:57 CBC+H.LAB.BRZ ordered. EDMS EDMS 18:57 18:57 COMPREHENSIVE METABOLIC PANEL+C.LAB.BRZ ordered. EDMS EDMS 18:57 18:57 LIPASE+C.LAB.BRZ ordered. EDMS EDMS 18:57 18:57 Test, Urine+UC.LAB.BRZ ordered. EDMS EDMS 18:57 18:57 Urinalysis+U.LAB.BRZ ordered. EDMS EDMS 18:57 18:57 URINE DRUG SCREEN+UC.LAB.BRZ ordered. EDMS EDMS 18:57 18:57 MAGNESIUM+C.LAB.BRZ ordered. EDMS EDMS 18:57 18:57 Abdomen Pelvis W Con+CT.RAD.BRZ ordered. EDMS EDMS 20:51 20:49 NPO ordered. sb4 sb4
[2024-03-25 23:15] VITALS: TEMP 97.6
[2024-03-25 23:25] VITALS: BP 103/72; O2SAT 100
== END 2024-03-25 22:51 | disposition home or self-care (01) ==
LOC: ER 18:45
DX: K52.89 Other specified noninfective gastroenteritis and colitis (principal)
CPT/HCPCS: 85025; 81001; 36415; 83735; 81025; 83690; 80053; 80307; 74177; Q9967; J2405; J7030

== ENCOUNTER 2024-06-22 07:28 | Emergency (ER) | payer OTHER ==
[2024-06-22] MEDS ORDERED: ONDANSETRON 4 MG/2 ML VIAL ONE (07:46)
[2024-06-22] MEDS ORDERED: MORPHINE 4 MG/ML SYR ONE (07:46)
[2024-06-22] MEDS ORDERED: NA CHLORIDE 0.9% 1,000 ML ONE ×2 (07:46→08:59)
[2024-06-22] MEDS ORDERED: FAMOTIDINE 20 MG/2 ML VIAL IV ONE (07:59)
[2024-06-22 08:02] LABS: Absolute Eosinophils 0.1 K/uL (0-0.5); Absolute Lymphocytes (CBC) 1.8 K/uL (0.7-4.9); Absolute Monocytes 0.4 K/uL (0.1-1.3); Absolute Neutrophil 4.6 K/uL (1.8-8.0); Basophils % 0.4 % (0-1.3); Eosinophils % 1.4 % (0-4.4); Hematocrit 40.7 % (36.0-45.0); Hemoglobin 13.8 g/dL (12.0-15.0); Lymphocytes % 25.3 % (15.3-44.8); MCH 31.5 pg (27.0-35.0); MCV 92.7 fL (80-100); MPV 8.1 fL (7.6-11.3); Monocytes % 6.4 % (3.3-12.3); Neutrophils % 66.5 % (41.7-73.7); Platelets 321 thou/uL (152-406); RBC Red Blood Cell Count 4.39 M/uL (3.86-4.86); Red Cell Distribution Width 13.3 % (12.1-15.2)
[2024-06-22 08:16] LABS: Specific Gravity 1.015 (1.005-1.030); Sqamous Epithelial <5 /HPF (None Seen); Transitional Epithelial <5 /HPF (None Seen); Urine Bacteria <20 /HPF (<20); Urine Bilirubin NEGATIVE (Negative); Urine Blood Negative (Negative); Urine Clarity Turbid (Clear); Urine Color Yellow (Yellow); Urine Culture Reflex Order NOT NEEDED; Urine Glucose NEGATIVE (Negative); Urine Ketones 1+ (Negative); Urine Microscopic Reflex YN ORDER UMIC; Urine Mucus Slight /HPF (None Seen); Urine Nitrite NEGATIVE (Negative); Urine Protein NEGATIVE (Negative); Urine RBC <5 /HPF (None Seen); Urine Urobilinogen Normal (Normal); Urine WBC <5 /HPF (<5)
[2024-06-22 08:21] LABS: AST/SGOT 14 U/L (15-37); Albumin 3.4 g/dL (3.4-5.0); Albumin/Globulin Ratio 0.9 (1.1-1.8); Alkaline Phosphatase 50 U/L (45-117); Anion Gap 10.6 mEq/L (5.0-15.0); BUN Blood Urea Nitrogen 8 mg/dL (7-18); Bicarbonate 23 mEq/L (21-32); Globulin 3.8 g/dL (2.3-3.5); Glomerular Filtration Rate 95 ml/min (=/>90); Glucose Level 91 mg/dL (74-106); Lipase 29 U/L (13-75); Potassium 3.6 mEq/L (3.5-5.1); Protein, Total 7.2 g/dL (6.4-8.2); Sodium Level 138 mEq/L (136-145)
[2024-06-22 08:27] LABS: ALT/SGPT < 14 U/L (13-56)
--- NOTE | 2024-06-22 09:58 | RAD REPORT ---
EXAMINATION: CT Abdomen Pelvis W Contrast CLINICAL INDICATION: Female, 53 years old. ABD PAIN TECHNIQUE: CT abdomen and pelvis was performed, after the administration of IV contrast, as per [facility] protocol. Axial, sagittal and coronal reconstructions were obtained. One or more of the following dose reduction techniques were used: Automated exposure control, adjustment of the mA and k V according to patient size, and iterative reconstruction. Unless otherwise specified, incidental findings do not require dedicated imaging follow-up. COMPARISON: 03/25/2024 FINDINGS: LOWER CHEST: The visualized lung bases are clear. LIVER: Normal in size and contour. No focal lesion. BILIARY SYSTEM: Status post cholecystectomy. Mild prominence of the common bile duct, may relate to r eservoir effect. SPLEEN: Normal size. No focal lesion. PANCREAS: No mass, ductal dilation, or nikhil-pancreatic fluid. ADRENALS: Normal; no mass. KIDNEYS: Normal size and contour. No hydronephrosis. URINARY BLADDER: Unremarkable. GASTROINTESTINAL TRACT: No evidence of free air, significant intra-abdominal free fluid, bowel obstru ction or abscess. Mild fat stranding along the adventitia of the proximal colon. APPENDIX: Normal appendix. LYMPH NODES: No lymphadenopathy. MUSCULOSKELETAL: No acute or suspicious osseous abnormality. ADDITIONAL FINDINGS: None. IMPRESSION: Mild inflammatory changes of the proximal colon, suggesting acute infectious or inflammatory colitis. No other acute or concerning abnormalities seen in the abdomen or pelvis. Status post cholecystectomy.
[2024-06-22] MEDS ORDERED: CIPROFLOXACIN 400mg IV 400 MG/200 ML BAG IV ONE (10:09)
[2024-06-22] MEDS ORDERED: METRONIDAZOLE 500mg IVPB 500 MG/100 ML BAG IV ONE (10:10)
--- NOTE | 2024-06-22 10:40 | EDPHYS ---
Physician Documentation [facility] Name: Yvette Kidd Age: 53 yrs Sex: Female : 1970 Arrival Date: 06/22/2024 Time: 07:28 Bed 5 Private MD: RAYO Physician Galen Mcclelland HPI: 06/22 08:11 This 53 yrs old Female presents to ER via Ambulatory with complaints of jesse Abdominal Pain. 08:11 The patient presents with abdominal pain in the upper abdomen, in the lower abdomen. jesse Onset: The symptoms/episode began/occurred 2 day(s) ago. The symptoms do not radiate. Associated signs and symptoms: none. The symptoms are described as constant, crampy. Modifying factors: The symptoms are alleviated by nothing, the symptoms are aggravated by food, movement. Severity of pain: At its worst the pain was mild in the emergency department the pain is unchanged. The patient has not experienced similar symptoms in the past. 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 - Infectious Disease History:: Denies. - Social history:: Smoking status: Patient denies any tobacco usage or history of. - Family history:: not pertinent. ROS: 08:11 Constitutional: Negative for fever, chills, and weight loss, Eyes: Negative for injury, jesse pain, redness, and discharge, ENT: Negative for injury, pain, and discharge, Neck: Negative for injury, pain, and swelling, Cardiovascular: Negative for chest pain, palpitations, and edema, Respiratory: Negative for shortness of breath, cough, wheezing, and pleuritic chest pain, Back: Negative for injury and pain, : Negative for injury, bleeding, discharge, and swelling, MS/Extremity: Negative for injury and deformity, Skin: Negative for injury, rash, and discoloration, Neuro: Negative for headache, weakness, numbness, tingling, and seizure, Psych: Negative for depression, anxiety, suicide ideation, homicidal ideation, and hallucinations, Allergy/Immunology: Negative for hives, rash, and allergies, Endocrine: Negative for neck swelling, polydipsia, polyuria, polyphagia, and marked weight changes, Hematologic/Lymphatic: Negative for swollen nodes, abnormal bleeding, and unusual bruising, 08:11 Abdomen/GI: Positive for abdominal pain, nausea and vomiting, abdominal cramps, Exam: 08:11 Constitutional: This is a well developed, well nourished patient who is awake, alert, jesse and in no acute distress. Head/Face: Normocephalic, atraumatic. Eyes: Pupils equal round and reactive to light, extra-ocular motions intact. Lids and lashes normal. Conjunctiva and sclera are non-icteric and not injected. Cornea within normal limits. Periorbital areas with no swelling, redness, or edema. ENT: Nares patent. No nasal discharge, no septal abnormalities noted. Tympanic membranes are normal and external auditory canals are clear. Oropharynx with no redness, swelling, or masses, exudates, or evidence of obstruction, uvula midline. Mucous membranes moist. Neck: Trachea midline, no thyromegaly or masses palpated, and no cervical lymphadenopathy. Supple, full range of motion without nuchal rigidity, or vertebral point tenderness. No Meningismus. Chest/axilla: Normal chest wall appearance and motion. Nontender with no deformity. No lesions are appreciated. Cardiovascular: Regular rate and rhythm with a normal S1 and S2. No gallops, murmurs, or rubs. Normal PMI, no JVD. No pulse deficits. Respiratory: Lungs have equal breath sounds bilaterally, clear to auscultation and percussion. No rales, rhonchi or wheezes noted. No increased work of breathing, no retractions or nasal flaring. Back: No spinal tenderness. No costovertebral tenderness. Full range of motion. Female : Normal external genitalia. Skin: Warm, dry with normal turgor. Normal color with no rashes, no lesions, and no evidence of cellulitis. MS/ Extremity: Pulses equal, no cyanosis. Neurovascular intact. Full, normal range of motion. Neuro: Awake and alert, GCS 15, oriented to person, place, time, and situation. Cranial nerves II-XII grossly intact. Motor strength 5/5 in all extremities. Sensory grossly intact. Cerebellar exam normal. Normal gait. Psych: Awake, alert, with orientation to person, place and time. Behavior, mood, and affect are within normal limits. 08:11 ECG was reviewed by the Attending Physician. 08:11 Abdomen/GI: Inspection: abdomen appears normal, Bowel sounds: hyperactive, in all quadrants, Palpation: mild abdominal tenderness, in all quadrants, Liver: no appreciated palpable abnormalities, Hernia: not appreciated, Vital Signs: 07:41 BP 115 / 57; Pulse 92; Resp 16; Temp 97.4; Pulse Ox 99% on R/A; Weight 68.95 kg; Height ko1 5 ft. 4 in. ; 08:23 BP 94 / 67; Pulse 93; Resp 16; Pulse Ox 96% on R/A; ko1 09:06 BP 109 / 85; Pulse 86; Resp 15; Pulse Ox 99% ; ko1 10:15 Pulse 81; Resp 16; Pulse Ox 100% ; ko1 11:14 BP 114 / 72; Pulse 84; Resp 18; Pulse Ox 99% ; ko1 07:41 Body Mass Index 26.09 (68.95 kg, 162.56 cm) ko1 MDM: 07:32 Medical Screening Exam initiated jesse 08:13 Differential diagnosis: bowel obstruction, diverticulitis, gastritis, GI Bleed, jesse Menorrhagia, Mesenteric ischemia or infarction, non-specific abd pain, pancreatitis, Peptic Ulcer Disease, Pyelonephritis, Ureterolithiasis, urinary tract infection. Data reviewed: vital signs, nurses notes, lab test result(s), EKG, radiologic studies, plain films. Consideration of Admission/Observation Escalation of care including admission/observation considered. I considered the following discharge prescriptions or medication management in the emergency department Medications were administered in the Emergency Department. See MAR. Independent interpretation of the following test(s) in the Emergency Department EKG: See my EKG interpretation above. Test considered but Not performed: Ultrasound no abd usg. Care significantly affected by the following chronic conditions: ra, mvp, add, adhd. 06/22 07:45 Order name: CBC with Diff; Complete Time: 08:52 [facility] 06/22 07:45 Order name: CMP; Complete Time: 08:52 [facility] 06/22 07:45 Order name: Lipase; Complete Time: 08: [facility] 06/22 07:45 Order name: Urinalysis w/ reflexes; Complete Time: 08:52 [facility] 06/22 07:50 Order name: Troponin High Sensitivity; Complete Time: 08:52 [facility] 06/22 07:50 Order name: CT Abd/Pelvis - PO and IV Contrast; Complete Time: 10:02 [facility] 06/22 07:45 Order name: IV Saline Lock; Complete Time: 07:46 [facility] 06/22 07:45 Order name: Labs collected and sent; Complete Time: 07:46 [facility] 06/22 07:50 Order name: EKG - Nurse/Tech; Complete Time: 08:05 [facility] EC:11 Rate is 87 beats/min. Rhythm is regular. QRS Davidson is Normal. AR interval is normal. QRS jesse interval is normal. QT interval is normal. No Q waves. T waves are Normal. No ST changes noted. Clinical impression: NSR w/ Non-specific ST/T Changes and No evidence of ischemia. Administered Medications: 08:05 Drug: Ondansetron IVP 4 mg IVP once; over 2 minutes Route: IVP; Site: left antecubital; ko1 08:20 Follow up: Response: No adverse reaction ko1 08:05 Drug: NS 0.9% IV 1000 ml IV at 1 bolus Per protocol; to be given as a bolus over 60 ko1 minutes Route: IV; Rate: 1 bolus; Site: left antecubital; 09:06 Follow up: Response: No adverse reaction; IV Status: Completed infusion; IV Intake: ko1 1000ml 08:06 Drug: Famotidine IVP 20 mg IVP once; dilute with 10 mL 0.9% NaCl; give over 2 minutes ko1 Route: IVP; Site: right antecubital; 08:21 Follow up: Response: No adverse reaction ko1 08:06 Drug: morphine IVP or IV 4 mg IVP once over 4 mins Route: IVP; Infused Over: 4 mins; ko1 Site: right antecubital; 08:21 Follow up: Response: No adverse reaction ko1 09:04 Drug: NS 0.9% IV 1000 ml IV at 1000 ml once; to be given as a bolus over 60 minutes mb9 Route: IV; Rate: 1000 ml; Site: right antecubital; 10:46 Follow up: Response: No adverse reaction; IV Status: Completed infusion mb9 11:16 Follow up: IV Intake: 1000ml ko1 10:17 Drug: metroNIDAZOLE IVPB 500 mg 100 ml IVPB at 200 ml/hr once over 30 mins Volume: 100 mb9 ml; Route: IVPB; Rate: 200 ml/hr; Infused Over: 30 mins; Site: right antecubital; 10:46 Follow up: Response: No adverse reaction; IV Status: Completed infusion mb9 10:47 Follow up: Response: No adverse reaction; IV Status: Completed infusion; IV Intake: ko1 100ml 10:46 Drug: Ciprofloxacin IVPB 400 mg 200 ml IVPB once over 60 mins Volume: 200 ml; Route: mb9 IVPB; Infused Over: 60 mins; Site: right antecubital; 12:05 Follow up: Response: No adverse reaction; IV Status: Completed infusion mb9 Disposition Summary: 06/22/24 10:39 Discharge Ordered Notes: Location: Home [facility] Problem: new jesse Symptoms: have improved jesse Condition: Stable jesse Diagnosis - Noninfective gastroenteritis and colitis, unspecified jesse - Abdominal tenderness jesse - Vomiting jesse - Diarrhea, unspecified jesse Followup: jesse - With: Private Physician - When: 2 - 3 days - Reason: Recheck today's complaints, Continuance of care, Re-evaluation by your physician Followup: jesse - With: Ervin Juarez MD - When: 2 - 3 days - Reason: Recheck today's complaints, Re-evaluation by your physician Discharge Instructions: - Discharge Summary Sheet jesse - Abdominal Pain, Adult jesse - Food Choices to Help Relieve Diarrhea, Adult jesse - Diarrhea, Adult jesse - Abdominal Pain, Adult, [id number] jesse - Vomiting, Adult jesse - Colitis [facility] Forms: - Medication Reconciliation Form [facility] - Antibiotic Education [facility] - Prescription Opioid Use [facility] - Patient Portal Instructions [facility] - Leadership Thank You Letter [facility] Prescriptions: - ondansetron 4 mg Oral Tablet,disintegrating - take 1 tablet ORAL route every 6-8 hours for 5 days; 20 tablet; Refills: 0, [facility] Product Selection Permitted - Flagyl 500 mg Oral tablet - take 1 tablet ORAL route every 6 hours for 7 days; 28 tablet; Refills: 0, [facility] Product Selection Permitted - Pepcid 20 mg Oral Tablet - take 1 tablet ORAL route every 12 hours for 10 days; 20 tablet; Refills: 0, [facility] Product Selection Permitted - Cipro 500 mg Oral Tablet - take 1 tablet ORAL route every 12 hours for 7 days; 14 tablet; Refills: 0, [facility] Product Selection Permitted - promethazine 25 mg Oral tablet - take 1 tablet ORAL route every 6 hours As needed; 15 tablet; Refills: 0, [facility] Product Selection Permitted - dicyclomine 20 mg Oral tablet - take 1 tablet ORAL route 4 times per day; 28 tablet; Refills: 0, Product jesse Selection Permitted Signatures: Dispatcher [employer] EDGalen Mustafa MD MD cha Oliver, Kathy RN RN ko1 Dominga Magallon RN RN mb9 Corrections: (The following items were deleted from the chart) 07:45 07:45 CBC+H.LAB.BRZ ordered. EDMS EDMS 07:45 07:45 COMPREHENSIVE METABOLIC PANEL+C.LAB.BRZ ordered. EDMS EDMS 07:45 07:45 LIPASE+C.LAB.BRZ ordered. EDMS EDMS 07:45 07:45 Urinalysis+U.LAB.BRZ ordered. EDMS EDMS 07:50 07:50 Troponin High Sensitivity+C.LAB.BRZ ordered. EDMS EDMS 07:51 07:51 Abdomen Pelvis W Con+CT.RAD.BRZ ordered. EDMS EDMS
--- NOTE | 2024-06-22 10:40 | ER ---
Nurse's Notes [facility] Name: Yvette Kidd Age: 53 yrs Sex: Female : 1970 Arrival Date: 06/22/2024 Time: 07:28 Bed 5 Private MD: Diagnosis: Noninfective gastroenteritis and colitis, unspecified;Abdominal tenderness;Vomiting;Diarrhea, unspecified Presentation: 06/22 07:41 Chief complaint: Patient states: abdominal pain that started last night, vomiting and ko1 diarrhea started this morning. Has had same thing in the past and was started on protonix but doesn't take it anymore. Has taken zofran this morning. Coronavirus screen: At this time, the client does not indicate any symptoms associated with coronavirus-19. Ebola Screen: No symptoms or risks identified at this time. Initial Sepsis Screen: Does the patient meet any 2 criteria? No. Patient's initial sepsis screen is negative. Does the patient have a suspected source of infection? No. Patient's initial sepsis screen is negative. Risk Assessment: Do you want to hurt yourself or someone else? Patient reports no desire to harm self or others. Onset of symptoms was June 22, 2024. Care prior to arrival: Medication(s) given: zofran 4 mg. 07:41 Method Of Arrival: Ambulatory ko1 07:41 Acuity: SANGITA 3 ko1 Triage Assessment: 07:45 General: Appears uncomfortable, Behavior is cooperative, appropriate for age. Pain: ko1 Complains of pain in abdomen. EENT: No deficits noted. Neuro: No deficits noted. Cardiovascular: No deficits noted. Respiratory: No deficits noted. GI: Reports lower abdominal pain, upper abdominal pain, diarrhea, nausea, vomiting. : No deficits noted. Derm: No deficits noted. Musculoskeletal: No deficits noted. 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 - Infectious Disease History:: Denies. - Social history:: Smoking status: Patient denies any tobacco usage or history of. - Family history:: not pertinent. Screenin:44 [facility] ED Fall Risk Assessment (Adult) History of falling in the last 3 months, mb9 including since admission No falls in past 3 months (0 pts) Confusion or Disorientation No (0 pts) Intoxicated or Sedated No (0 pts) Impaired Gait No (0 pts) Mobility Assist Device Used No (0 pt) Altered Elimination No (0 pt) Score/Fall Risk Level 0 - 2 = Low Risk Oriented to surroundings, Maintained a safe environment, Educated pt \T\ family on fall prevention, incl call for assistance when getting out of bed. Abuse screen: Denies threats or abuse. Nutritional screening: No deficits noted. Tuberculosis screening: No symptoms or risk factors identified. Assessment: 07:56 Reassessment: see triage note. ko1 09:00 Reassessment: Pt finished with PO contrast. CT notified. mb9 09:05 Reassessment: No changes from previously documented assessment. Patient and/or family mb9 updated on plan of care and expected duration. Pain level reassessed. Patient is alert, oriented x 3, equal unlabored respirations, skin warm/dry/pink. 10:42 Reassessment: D/C pending completion of IV antibiotics. mb9 12:05 Reassessment: No changes from previously documented assessment. Patient and/or family mb9 updated on plan of care and expected duration. Pain level reassessed. Patient is alert, oriented x 3, equal unlabored respirations, skin warm/dry/pink. Vital Signs: 07:41 BP 115 / 57; Pulse 92; Resp 16; Temp 97.4; Pulse Ox 99% on R/A; Weight 68.95 kg; Height ko1 5 ft. 4 in. ; 08:23 BP 94 / 67; Pulse 93; Resp 16; Pulse Ox 96% on R/A; ko1 09:06 BP 109 / 85; Pulse 86; Resp 15; Pulse Ox 99% ; ko1 10:15 Pulse 81; Resp 16; Pulse Ox 100% ; ko1 11:14 BP 114 / 72; Pulse 84; Resp 18; Pulse Ox 99% ; ko1 07:41 Body Mass Index 26.09 (68.95 kg, 162.56 cm) ko1 ED Course: 07:31 Patient arrived in ED. mg5 07:32 Galen Mcclelland MD is Attending Physician. jesse 07:41 Ingrid Lund, CARLOS ALBERTO is Primary Nurse. ko1 07:44 Initial lab(s) drawn, by me, sent to lab. Inserted saline lock: 20 gauge in right mb9 antecubital area, using aseptic technique. Blood collected. Flushed with 10 mL NS. 07:45 Triage completed. ko1 07:45 Arm band placed on right wrist. Patient placed in an exam room, on a stretcher, on ko1 pulse oximetry, Patient notified of wait time. 07:55 CBC with Diff Sent. ko1 07:55 CMP Sent. ko1 07:55 Lipase Sent. ko1 07:55 No provider procedures requiring assistance completed. ko1 07:55 Patient has correct armband on for positive identification. Allergy band placed. Bed in ko1 low position. Call light in reach. Side rails up X 1. Provided Education on: meds, labs. Pulse ox on. NIBP on. Door closed. Noise minimized. Lights dimmed. Warm blanket given. Pillow given. 07:58 Troponin High Sensitivity Sent. mb9 09:27 CT Abd/Pelvis - PO and IV Contrast In Process Unspecified. EDMS 10:39 Ervin Juarez MD is Referral Physician. jesse 12:05 IV discontinued, intact, bleeding controlled, No redness/swelling at site. Pressure mb9 dressing applied. Administered Medications: 08:05 Drug: Ondansetron IVP 4 mg IVP once; over 2 minutes Route: IVP; Site: left antecubital; ko1 08:20 Follow up: Response: No adverse reaction ko1 08:05 Drug: NS 0.9% IV 1000 ml IV at 1 bolus Per protocol; to be given as a bolus over 60 ko1 minutes Route: IV; Rate: 1 bolus; Site: left antecubital; 09:06 Follow up: Response: No adverse reaction; IV Status: Completed infusion; IV Intake: ko1 1000ml 08:06 Drug: Famotidine IVP 20 mg IVP once; dilute with 10 mL 0.9% NaCl; give over 2 minutes ko1 Route: IVP; Site: right antecubital; 08:21 Follow up: Response: No adverse reaction ko1 08:06 Drug: morphine IVP or IV 4 mg IVP once over 4 mins Route: IVP; Infused Over: 4 mins; ko1 Site: right antecubital; 08:21 Follow up: Response: No adverse reaction ko1 09:04 Drug: NS 0.9% IV 1000 ml IV at 1000 ml once; to be given as a bolus over 60 minutes mb9 Route: IV; Rate: 1000 ml; Site: right antecubital; 10:46 Follow up: Response: No adverse reaction; IV Status: Completed infusion mb9 11:16 Follow up: IV Intake: 1000ml ko1 10:17 Drug: metroNIDAZOLE IVPB 500 mg 100 ml IVPB at 200 ml/hr once over 30 mins Volume: 100 mb9 ml; Route: IVPB; Rate: 200 ml/hr; Infused Over: 30 mins; Site: right antecubital; 10:46 Follow up: Response: No adverse reaction; IV Status: Completed infusion mb9 10:47 Follow up: Response: No adverse reaction; IV Status: Completed infusion; IV Intake: ko1 100ml 10:46 Drug: Ciprofloxacin IVPB 400 mg 200 ml IVPB once over 60 mins Volume: 200 ml; Route: mb9 IVPB; Infused Over: 60 mins; Site: right antecubital; 12:05 Follow up: Response: No adverse reaction; IV Status: Completed infusion mb9 Medication: 07:55 VIS not applicable for this client. ko1 Intake: 09:06 IV: 1000ml; Total: 1000ml. ko1 10:47 IV: 100ml; Total: 1100ml. ko1 11:16 IV: 1000ml; Total: 2100ml. ko1 Outcome: 10:39 Discharge ordered by . jesse 12:05 Discharged to home ambulatory, with family, alyssa 12:05 Condition: stable 12:05 Discharge instructions given to patient, Instructed on discharge instructions, follow up and referral plans. Demonstrated understanding of instructions, follow-up care, medications, Prescriptions given X 6 12:06 Patient left the ED. mb9 Signatures: Dispatcher [employer] EDGalen Mustafa MD MD cha Oliver, Kathy, RN RN ko1 Dominga Magallon RN RN [email or web address] Nataly Ballesteros mg5
[2024-06-22 12:10] VITALS: TEMP 97.4
[2024-06-22 12:14] VITALS: BP 114/72; O2SAT 99
--- NOTE | 2024-06-23 12:06 | EKG ---
Test Date: 2024-06-22 Test Time: 08:06:31 [employer] Station Agent: MONA MEASUREMENT RESULTS: Intervals: Rate: 87 ME: 160 QRSD: 88 QT: 392 QTc: 471 [place]: P: -6 ME: 160 QRS: -11 T: -15 INTERPRETIVE STATEMENTS: Normal sinus rhythm Low voltage QRS Borderline ECG Compared to ECG 03/14/2024 03:44:31 Low QRS voltage now present Myocardial infarct finding no longer present Electronically Signed On 06-23-24 12:05:17 PASSENGER SERVICE MANAGER by Toby Ho
== END 2024-06-22 12:06 | disposition home or self-care (01) ==
LOC: ER 07:28
DX: K52.9 Noninfective gastroenteritis and colitis, unspecified (principal); R11.10 Vomiting, unspecified
CPT/HCPCS: 93005; 85025; 81001; 36415; 84484; 83690; 80053; 74177; Q9967; J2405; J0744; J7030 ×2; 99284